=== PATIENT | male | born 1970 | race Caucasian/White ===

== ENCOUNTER 2019-06-05 14:28 | Inpatient (IN) ==
[2019-06-05] MEDS ORDERED: DIAZEPAM 5 MG/ML INJ 10ML VIAL IV STA ×3 (15:16→19:17)
[2019-06-05] MEDS ORDERED: THIAMINE HCL 200 MG in SODIUM CHLORIDE 0.9% 50 ML IV STA (15:16)
[2019-06-05] MEDS ORDERED: SODIUM CHLORIDE 0.9% 1000ML 1,000 ML IV SCH (15:30)
[2019-06-05 15:57] LABS: Basophils # (auto) 0.04 K/uL (0-0.2); Basophils % (auto) 0.6 %; Eosinophils # (auto) 0.03 K/uL (0-0.5); Eosinophils % (auto) 0.4 %; Hematocrit (blood only) 39.6 % (42-52); Hemoglobin 14.6 g/dL (14.0-18.0); Immature Granulocytes # (auto) 0.01 K/uL (0.00-0.02); Immature Granulocytes % (auto) 0.1 %; Lymphocytes # (auto) 1.45 K/uL (1.2-3.4); Lymphocytes % (auto) 20.6 %; Mean Corpuscular Hemoglobin 33.7 pg (25-34); Mean Corpuscular Hgb Conc 36.9 g/dL (32-36); Mean Corpuscular Volume 91.5 fL (80-100); Mean Platelet Volume 10.3 fL (7.4-10.4); Monocytes # (auto) 0.75 K/uL (0.11-0.59); Monocytes % (auto) 10.6 %; Neutrophils # (auto) 4.77 K/uL (1.4-6.5); Neutrophils % (auto) 67.7 %; Platelet Count 176 K/uL (130-400); RDW Coefficient of Variation 11.8 % (11.5-14.5); RDW Standard Deviation 39.9 fL (36.4-46.3); Red Blood Count 4.33 M/uL (4.7-6.1); White Blood Count 7.05 K/uL (4.8-10.8)
[2019-06-05 16:20] LABS: Albumin Globulin Ratio 0.8 (0.9-2); Albumin Level 3.7 gm/dl (3.4-5.0); BUN Creatinine Ratio 6.8 (10-20); Bilirubin,Total 1.6 mg/dl (0.2-1); Calcium 8.3 mg/dl (8.5-10.1); Creatinine Clr Calc Pharmacy 146.4 ml/min; Est GFR (African American) 127.5; Globulin 4.6 gm/dl (2.5-4.0); Magnesium 1.9 mg/dl (1.8-2.4); Potassium 3.7 mmol/L (3.5-5.1); Total Protein 8.3 gm/dl (6.4-8.2)
[2019-06-05] MEDS ORDERED: SODIUM CHLORIDE 0.9% 1000ML 1,000 ML IV ONE (16:36)
[2019-06-05] MEDS ORDERED: D5W AND 1/2NSS + 20MEQ KCL 20 MEQ/1,000 ML BAG IV SCH (19:30)
--- NOTE | 2019-06-05 20:24 | Emergency Department Note ---
Entered by Evelia Martinez acting as a scribe for History of Present Illness General Chief complaint: Detox Request Stated complaint: ALCOHOL DETOX Time Seen by Provider: 06/05/19 15:13 Source: patient History of Present Illness Onset (ago): day(s) (today) Location: head Pain Consistency: + other (episode) Maximum Pain Intensity: 0 Quality: + other (detox) Associated symptoms: + diaphoresis, + nausea/vomiting, + weakness and + other (shaky, brown urine, abdominal pain); no fever/chills The patient is a 48 year old male w/ PMHx acid reflux, anxiety, HLD, HTN, diabetes, and alcoholism who presents to the ED w/ CC of an episode of detox starting today. The patient states that for the past 12 years he has been drinking a bottle of liquor a day. He states that he has intermittently felt that he needed to drink out of necessity, but the past few days has felt it constantly. He states that he had 2 drinks yesterday and only one today, but he feels weak and shaky. He notes that he has also had diaphoresis and brown urine. He notes that he feels like he may just have a heart attack or something with how he feels. The patient complains of nausea, vomiting, and right lower abdominal cramping. The patient denies fever, chills, use of drugs, use of tobacco, and missing any of his medications. Home Medications Home Medications Medication Instructions Recorded Confirmed Type amlodipine 5 mg tablet 5 mg PO DAILY #90 tab 02/27/19 06/05/19 Rx glipizide 5 mg tablet 5 mg PO DAILY #90 tab 02/27/19 06/05/19 Rx lisinopril 40 mg tablet 40 mg PO DAILY #90 tab 02/27/19 06/05/19 Rx omeprazole 20 mg capsule,delayed 20 mg PO DAILY #90 cap 02/27/19 06/05/19 Rx release simvastatin 20 mg tablet 20 mg PO QPM #90 tab 02/27/19 06/05/19 Rx Allergies Allergy/AdvReac Type Severity Reaction Status Date / Time No Known Allergies Allergy Mild Unverified 06/05/19 16:37 Past Med/Surg History Medical History Acid reflux Anxiety Elevated transaminase level Hyperlipidemia Hypertension Regular alcohol consumption Type II diabetes mellitus Family History Other Family history non-contributory Social History 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 and A total of 10 systems reviewed and were otherwise negative Physical Exam Vital Signs Vital Signs - 24 hr 06/05/19 14:31 06/05/19 15:58 06/05/19 15:59 Temperature 36.7 C Temperature Source Oral Pulse Rate 121 H Pulse Rate [Left] 113 H Pulse Rate from SpO2 Sensor Pulse Rhythm Regular Pulse Rhythm [Left] Regular Pulse Strength Normal Pulse Strength [Left] Respiratory Rate 16 23 Respiratory Effort / Characteristics Non-Labored Non-Labored Respiratory Depth Normal Normal Respiratory Pattern Regular Regular Blood Pressure 157/106 H Blood Pressure [Right Arm] 146/93 H Blood Pressure Mean 123 Blood Pressure Mean [Right Arm] 110 Blood Pressure Position Sitting Blood Pressure Position [Right Arm] Pulse Oximetry 97 94 94 Oxygen Delivery Method Room Air Room Air Room Air Sepsis Recent Fever Within 48 Hours No Sepsis Action Taken by Nursing No Action Required 06/05/19 17:29 06/05/19 17:49 06/05/19 20:00 Temperature Temperature Source Pulse Rate 102 H Pulse Rate [Left] 112 H 108 H Pulse Rate from SpO2 Sensor 103 H Pulse Rhythm Pulse Rhythm [Left] Regular Pulse Strength Pulse Strength [Left] Normal Respiratory Rate 20 20 21 Respiratory Effort / Characteristics Non-Labored Spontaneous Non-Labored Respiratory Depth Normal Normal Respiratory Pattern Regular Regular Blood Pressure 133/91 Blood Pressure [Right Arm] 132/88 146/84 H Blood Pressure Mean 113 Blood Pressure Mean [Right Arm] 102 104 Blood Pressure Position Blood Pressure Position [Right Arm] Sitting Pulse Oximetry 93 95 93 Oxygen Delivery Method Room Air Room Air Sepsis Recent Fever Within 48 Hours Sepsis Action Taken by Nursing 06/05/19 20:30 Temperature Temperature Source Pulse Rate 112 H Pulse Rate [Left] Pulse Rate from SpO2 Sensor 111 H Pulse Rhythm Pulse Rhythm [Left] Pulse Strength Pulse Strength [Left] Respiratory Rate 20 Respiratory Effort / Characteristics Respiratory Depth Respiratory Pattern Blood Pressure 160/110 H Blood Pressure [Right Arm] Blood Pressure Mean 122 Blood Pressure Mean [Right Arm] Blood Pressure Position Blood Pressure Position [Right Arm] Pulse Oximetry 94 Oxygen Delivery Method Sepsis Recent Fever Within 48 Hours Sepsis Action Taken by Nursing GENERAL: Well nourished, moderate distress, tremulous, non-toxic. EYE EXAM: Normal conjunctiva. PERRL, no anisocoria and EOM's grossly intact w/o pain. OROPHARYNX: Dry mucous membranes. Grossly normal dentition. Tongue fascic ulations noted. NECK: Supple, no nuchal rigidity, no adenopathy, non-tender. No signs of meningismus. LUNGS: Clear to auscultation. Normal chest wall mechanics. HEART: NSR, no MRG. ABDOMEN: Abdomen soft, non-tender, normo-active bowel sounds, no masses, no rebound or guarding. BACK: No CVA TTP. SKIN: No rashes and no bruising. UPPER EXTREMITIES: Upper extremities are grossly normal. LOWER EXTREMITIES: No pitting edema. No calf pain. NEURO EXAM: A&O x3, cranial nerves II-XII grossly intact, normal speech, moves all 4 extremities on command w/o issue. Course Course 1525: The patient was evaluated in room B9. A complete history and physical exam was performed. 152: Orders were placed and the patient was started on the equipment monitor phototypesetting. 172: I reevaluated the patient and updated him on his test results. I discussed the treatment plan with him. He verbally agrees and understands. The residential case manager is going to come speak with him. 1916: I discussed the patient's case with Dr. Humphrey [facility] Hospitalist. He will evaluate the patient for further management. 1956: [facility] the [facility] He will evaluate the patient for further management. Administered Medications Amlodipine Besylate (Norvasc) 5 mg PO DAILY [facility] Stop: 07/06/19 08:59 Last Admin: 06/06/19 08:23 Dose: 5 mg Documented by: [id number] Folic Acid (Folvite) 1 mg PO QAM [facility] Stop: 07/06/19 08:59 Last Admin: 06/06/19 08:23 Dose: 1 mg Documented by: [id number] Insulin Aspart (Novolog Flexpen) 0 units SC ACHS [facility] Stop: 07/06/19 00:35 Last Admin: 06/06/19 12:06 Dose: 1 units Documented by: [id number] Cosigned by: [id number] Admin: 06/06/19 08:56 Dose: 2 units Documented by: [id number] Cosigned by: [id number] Admin: 06/06/19 01:05 Dose: Not Given Documented by: [id number] Cosigned by: [id number] Lisinopril (Zestril) 40 mg PO DAILY [facility] Stop: 07/06/19 08:59 Last Admin: 06/06/19 08:24 Dose: 40 mg Documented by: [id number] Pantoprazole Sodium (Protonix) 40 mg PO DAILY [facility] Stop: 07/06/19 08:59 Last Admin: 06/06/19 08:23 Dose: 40 mg Documented by: [id number] Simvastatin (Zocor) 20 mg PO QPM MARY Stop: 07/06/19 00:35 Last Admin: 06/06/19 01:29 Dose: 20 mg Documented by: [id number] Thiamine HCl (Vitamin B-1) 100 mg PO QAM MARY Stop: 07/06/19 08:59 Last Admin: 06/06/19 08:24 Dose: 100 mg Documented by: [id number] Discontinued Medications Diazepam (Valium) 10 mg IV NOW STA Stop: 06/05/19 15:17 Last Admin: 06/05/19 15:55 Dose: 10 mg Documented by: [id number] Diazepam (Valium) 10 mg IV NOW STA Stop: 06/05/19 16:37 Last Admin: 06/05/19 17:20 Dose: 10 mg Documented by: [id number] Diazepam (Valium) 10 mg IV NOW STA Stop: 06/05/19 19:18 Last Admin: 06/05/19 19:38 Dose: 10 mg Documented by: [id number] Gabapentin (Neurontin) 1,200 mg PO TODAY@1100 [facility] Stop: 06/06/19 11:01 Last Admin: 06/06/19 11:48 Dose: 1,200 mg Documented by: [id number] Sodium Chloride (Nss 1000ml) 1,000 mls @ 999 mls/hr IV .Q1H1M MARY Stop: 06/05/19 16:30 Last Infusion: 06/05/19 17:27 Dose: 0 mls/hr Documented by: [id number] Admin: 06/05/19 15:50 Dose: 999 mls/hr Documented by: [id number] Thiamine HCl 200 mg/ Sodium (Chloride) 52 mls @ 208 mls/hr IV NOW STA Stop: 06/05/19 15:30 Last Infusion: 06/05/19 17:27 Dose: 0 mls/hr Documented by: [id number] Admin: 06/05/19 15:51 Dose: 208 mls/hr Documented by: [id number] Sodium Chloride (Nss 1000ml) 1,000 mls @ 999 mls/hr IV .Q1H1M ONE Stop: 06/05/19 17:36 Last Infusion: 06/05/19 18:24 Dose: 0 mls/hr Documented by: [id number] Admin: 06/05/19 17:20 Dose: 999 mls/hr Documented by: [id number] Potassium Chloride/Dextrose/Sod Cl (D5w And 1/2nss + 20meq Kcl) 20 meq in 1,000 mls @ 250 mls/hr IV .Q4H [facility] Stop: 07/05/19 19:29 Last Infusion: 06/06/19 00:37 Dose: 0 mls/hr Documented by: [id number] Infusion: 06/05/19 21:30 Dose: 0 mls/hr Documented by: [id number] Admin: 06/05/19 19:46 Dose: 250 mls/hr Documented by: [id number] Potassium Chloride/Sodium Chloride (Normal Saline W/20 Meq Kcl) 20 meq in 1,000 mls @ 150 mls/hr IV .Q6H40M [facility] Stop: 07/06/19 00:59 Last Infusion: 06/06/19 10:54 Dose: 0 mls/hr Documented by: [id number] Admin: 06/06/19 08:11 Dose: 150 mls/hr Documented by: [id number] Infusion: 06/06/19 08:11 Dose: 150 mls/hr Documented by: [id number] Admin: 06/06/19 01:30 Dose: 150 mls/hr Documented by: [id number] Critical Care Time Critical Care Time: Yes Total Critical Care Time: 120 I have personally spent 120 minutes of critical care time in the direct management of this patient. This includes bedside care, interpretation of diagn ostic studies, and testing, discussion with consultants, patient, and family members, and other required patient management activities. This 120 minutes is in excess of all separately billable procedures. Medical Decision Making Differential Diagnosis Etiologies such as toxicological process, infection, hypoglycemia, electrolyte abnormalities, cardiac sources, intracerebral event, neurologic process, as well as others were entertained. Medical Records Attestation: I reviewed the patient's medical records. Home Medications Current Medication List: was personally reviewed by me Laboratory Data Attestation: I reviewed the patient's lab results. Result diagrams: 06/06/19 00:48 06/06/19 00:48 Lab Results 06/05/19 06/05/19 06/05/19 Range/Units 15:35 15:35 15:35 WBC 7.05 (4.8-10.8) K/uL RBC 4.33 L (4.7-6.1) M/uL Hgb 14.6 (14.0-18.0) g/dL Hct 39.6 L (42-52) % MCV 91.5 (80-100) fL MCH 33.7 (25-34) pg MCHC 36.9 H (32-36) g/dL RDW Std Deviation 39.9 (36.4-46.3) fL RDW Coeff of Ashley 11.8 (11.5-14.5) % Plt Count 176 (130-400) K/uL MPV 10.3 (7.4-10.4) fL Immature Gran % (Auto) 0.1 % Neut % (Auto) 67.7 % Lymph % (Auto) 20.6 % Jessamine % (Auto) 10.6 % Eos % (Auto) 0.4 % Baso % (Auto) 0.6 % Immature Gran # (Auto) 0.01 (0.00-0.02) K/uL Neut # (Auto) 4.77 (1.4-6.5) K/uL Lymph # (Auto) 1.45 (1.2-3.4) K/uL Jessamine # (Auto) 0.75 H (0.11-0.59) K/uL Eos # (Auto) 0.03 (0-0.5) K/uL Baso # (Auto) 0.04 (0-0.2) K/uL Sodium 129 L (136-145) mmol/L Potassium 3.7 (3.5-5.1) mmol/L Chloride 95 L (98-107) mmol/L Carbon Dioxide 18 L (21-32) mmol/L Anion Gap 16.0 H (3-11) BUN 5 L (7-18) mg/dl Creatinine 0.75 (0.6-1.4) mg/dl Est Cr Clr Drug Dosing 146.4 ml/min Est GFR ( Amer) 127.5 Est GFR (Non-Af Amer) 110.0 BUN/Creatinine Ratio 6.8 L (10-20) Glucose 90 (70-99) mg/dl Calcium 8.3 L (8.5-10.1) mg/dl Magnesium 1.9 (1.8-2.4) mg/dl Total Bilirubin 1.6 H (0.2-1) mg/dl AST 249 H (15-37) U/L ALT 108 H (12-78) U/L Alkaline Phosphatase 96 (45-117) U/L Total Protein 8.3 H (6.4-8.2) gm/dl Albumin 3.7 (3.4-5.0) gm/dl Globulin 4.6 H (2.5-4.0) gm/dl Albumin/Globulin Ratio 0.8 L (0.9-2) Folate 19.97 (>5.38) ng/ml Specimen Hemolysis Ethyl Alcohol mg/dL (0-3) mg/dl 06/05/19 Range/Units 15:35 WBC (4.8-10.8) K/uL RBC (4.7-6.1) M/uL Hgb (14.0-18.0) g/dL Hct (42-52) % MCV (80-100) fL MCH (25-34) pg MCHC (32-36) g/dL RDW Std Deviation (36.4-46.3) fL RDW Coeff of Ashley (11.5-14.5) % Plt Count (130-400) K/uL MPV (7.4-10.4) fL Immature Gran % (Auto) % Neut % (Auto) % Lymph % (Auto) % Jessamine % (Auto) % Eos % (Auto) % Baso % (Auto) % Immature Gran # (Auto) (0.00-0.02) K/uL Neut # (Auto) (1.4-6.5) K/uL Lymph # (Auto) (1.2-3.4) K/uL Jessamine # (Auto) (0.11-0.59) K/uL Eos # (Auto) (0-0.5) K/uL Baso # (Auto) (0-0.2) K/uL Sodium (136-145) mmol/L Potassium (3.5-5.1) mmol/L Chloride (98-107) mmol/L Carbon Dioxide (21-32) mmol/L Anion Gap (3-11) BUN (7-18) mg/dl Creatinine (0.6-1.4) mg/dl Est Cr Clr Drug Dosing ml/min Est GFR ( Amer) Est GFR (Non-Af Amer) BUN/Creatinine Ratio (10-20) Glucose (70-99) mg/dl Calcium (8.5-10.1) mg/dl Magnesium (1.8-2.4) mg/dl Total Bilirubin (0.2-1) mg/dl AST (15-37) U/L ALT (12-78) U/L Alkaline Phosphatase (45-117) U/L Total Protein (6.4-8.2) gm/dl Albumin (3.4-5.0) gm/dl Globulin (2.5-4.0) gm/dl Albumin/Globulin Ratio (0.9-2) Folate (>5.38) ng/ml Specimen Hemolysis Ethyl Alcohol mg/dL 24.0 H (0-3) mg/dl Blood Pressure Blood Pressure Findings: Elevated blood pressure Blood Pressure Disposition: further management by hospitalist SAUNDRA Narrative The patient is a 48 year old male w/ PMHx acid reflux, anxiety, HLD, HTN, diabetes, and alcoholism who presents to the ED w/ CC of an episode of detox starting today. Patient was seen and eval at the bedside. The patient was presenting with a detox request. The patient is somewhat tremulous and tachycardic. The patient typically drinks 1/5 of alcohol per day and is only drinking 3 drinks in the last 2 days. The patient does have tongue fasciculations and is tremulous. The patient was given medications. Blood work was obtained. The patient does have some associated hyponatremia and is dehydrated. The patient was given some additional vitamin started on D5 half with KCl. The patient did require additional IV Valium in order to ensure the patient did not go into complete DTs as the patient was suffering from symptoms of withdrawal. I did speak the on- call hospitalist agreed to further evaluate treat the patient. Patient subsequently made to the medicine service. Patient's hyponatremia and alcoholic hepatitis are likely sequela from his alcohol abuse. Impression & Plan Alcohol withdrawal, Hyponatremia, Acute alcoholic hepatitis, Acute dehydration Discharge Plan Visit Data *Final* Discharge Date/Time: 06/05/19 21:53 Chief Complaint: Detox Request Stated Complaint: ALCOHOL DETOX ED Provider: Roman Smith Discharge Problem: Alcohol withdrawal, Hyponatremia, Acute alcoholic hepatitis, Acute dehydration Patient Disposition: Admitted As Inpatient Discharge Instructions Interventions: ED Discharge Assessment Last Done: 06/05/19 21:53 Discharge Problem: Alcohol withdrawal Qualifiers: Complication of substance-induced condition: with unspecified complication Qualified Code(s): F10.239 - Alcohol dependence with withdrawal, unspecified The scribe's documentation has been prepared under my direction and personally reviewed by me in its entirety. I confirm that the note above accurately reflects all work, treatment, procedures, and medical decision making performed by me.
--- NOTE | 2019-06-05 22:47 | CT Scan Report ---
CT OF THE ABDOMEN AND PELVIS WITHOUT CONTRAST CLINICAL HISTORY: abnormal LFT's, ETOH abuse COMPARISON STUDY: No previous studies for comparison. TECHNIQUE: Axial images of the abdomen and pelvis were obtained without IV contrast. Images were revi ewed in the axial, sagittal, and coronal planes. Automated exposure control was utilized for the teresita dy. A dose lowering technique was utilized adhering to the principles of ALARA. FINDINGS: Lung bases are unremarkable. There is severe fatty infiltration of the liver. There is mild hepatomegaly. Lateral segment is enlarged. No hepatic lesions are identified although sensitivity is diminished on this unenhanced exam. There is mild gallbladder distention. Unenhanced images of the a drenal glands, kidneys and pancreas are unremarkable. There are calcified cannula was within the sple en. The size of the spleen is normal. No pneumatosis, free air or portal venous gas is present. There is no evidence for a bowel obstruction. The appendix is normal. Colonic diverticulosis is noted with out evidence for acute diverticulitis. There is no lymphadenopathy or ascites. No collaterals are whitney ntified on this noncontrast examination. There is no biliary or pancreatic ductal dilatation. IMPRESSION: 1. Severe fatty infiltration of the liver. Mild hepatomegaly. Mild enlargement of the lateral segment which can be an early finding of cirrhosis. 2. No ascites. Normal size spleen. 3. Mild gallbladder distention. Equivocal pericholecystic infiltration. If right upper quadrant pain, an ultrasound could be obtained. 4. No bowel obstruction. Colonic diverticulosis without evidence for acute diverticulitis. Electronically signed by: Frank Valerio M.D. 06/05/2019 10:45 PM
--- NOTE | 2019-06-05 23:13 | History & Physical Report ---
Date of Service June 05, 2019 Assessment & Plan (1) Alcohol withdrawal: Admit to monitored bed. Place on AWSS withdrawal program. NSS + KCl 20 mEq at 100 mils per hour. Zofran 4 mg IV every 6 hours as needed. Present on Admission?: Yes (2) Acid reflux: Omeprazole 20 mg p.o. daily or pantoprazole substitute. Present on Admission?: Yes (3) Type II diabetes mellitus: Hold glipizide 5 mg daily. Patient Accu-Cheks before meals and at bedtime with NovoLog coverage per scale. Check hemoglobin A1c Present on Admission?: Yes (4) Hypertension: Continue amlodipine 5 mg p.o. daily and lisinopril 40 mg p.o. daily with hold parameters Present on Admission?: Yes (5) Hyperlipidemia: Continue simvastatin 20 mg p.o. every evening. Check a fasting lipid panel. Present on Admission?: Yes (6) Liver cirrhosis: Severe fatty liver/mild hepatomegaly/early cirrhosis- Likely combination of alcohol, diabetes, hyperlipidemia and obesity. Work on treating all contributing factors Present on Admission?: Yes (7) Fatty liver: See above Present on Admission?: Yes History of Present Illness Chief Complaint: The patient presents to the emergency department with complaint of shakes, nausea and vomiting over the past 24 to 48 hours due to alcohol withdrawal. Primary Care Provider: SISSY Painter The patient is a 48-year-old male with a past medical history including alcohol abuse, hypertension, diabetes mellitus, GERD, and hyperlipidemia who presents to the emergency department reporting his last alcohol intake was 3 days ago, and is reporting symptoms as noted above suggestive of alcohol withdrawal. His reports that he has gone through this in the past. He has had no recent travels or sick exposures. Allergies Allergy/AdvReac Type Severity Reaction Status Date / Time No Known Allergies Allergy Mild Unverified 06/05/19 16:37 Home Medications Home Medications Medication Instructions Recorded Confirmed Type amlodipine 5 mg tablet 5 mg PO DAILY #90 tab 02/27/19 06/05/19 Rx glipizide 5 mg tablet 5 mg PO DAILY #90 tab 02/27/19 06/05/19 Rx lisinopril 40 mg tablet 40 mg PO DAILY #90 tab 02/27/19 06/05/19 Rx omeprazole 20 mg capsule,delayed 20 mg PO DAILY #90 cap 02/27/19 06/05/19 Rx release simvastatin 20 mg tablet 20 mg PO QPM #90 tab 02/27/19 06/05/19 Rx Past Med/Surg History Medical History Acid reflux Anxiety Elevated transaminase level Hyperlipidemia Hypertension Regular alcohol consumption Type II diabetes mellitus Family History Other Family history non-contributory Social History Preferred Language: Albanian Mid Level Practitioner Required: No Beliefs That Will Affect Care: None marital status: Current Living Situation: Spouse current occupational status: employed Other Information That Helps Us Care for You: No Feels Safe at Home: Yes Safety Concerns: Feels Safe At This Time Smoking Status: Former smoker Hx Alcohol Use: Yes Alcohol type: beer and hard liquor Hx Substance Use: No Review of Systems Review of Systems: The patient denies chest pain, palpitations, shortness of breath, dyspnea on exertion, cough, lower extremity swelling, sore throat, diarrhea , constipation, abdominal pain, pelvic pain, blood in urine or stool, dysuria, urinary frequency or urgency, loss of consciousness, rash, abnormal bruising or bleeding, imbalance, focal or generalized weakness. The review of systems is otherwise negative other than for that already noted above, and at least 10 systems have been reviewed. Physical Exam Physical Exam: The patient is awake, alert and oriented 3, well developed and well nourished, normocephalic and atraumatic, lying in bed and in no acute distress. HEENT--PERRL, EOMI, mucous membranes and oropharynx dry. Neck--supple. No JVD. No bruits. Thyroid normal, trachea midline, no adenopathy. Heart--normal S1 and S2. No murmurs, rubs or gallops. Lungs--clear bilaterally, no respiratory distress, no accessory muscle use. Abdomen--normal bowel sounds and soft. Nontender. Tympanitic and distended. obese. Extremities--no cyanosis or clubbing. No edema. Dermatologic--normal skin turgor, normal color, no abnormal lymph nodes, no rash. Neurologic--cranial nerves II through XII grossly intact. Rheumatologic--normal range of motion. Psychiatric--normal affect. Results & Data Vital Signs (Past 12 Hours) Vital Signs Temp Pulse Pulse Resp BP BP Pulse Ox 06/05/19 22:00 98 H 10 L 141/99 H 96 06/05/19 21:50 102 H 22 136/97 95 06/05/19 21:00 109 H 20 159/131 H 95 06/05/19 20:52 100 H 17 146/107 H 95 06/05/19 20:30 112 H 20 160/110 H 94 06/05/19 20:00 102 H 21 133/91 93 06/05/19 17:49 108 H 20 146/84 H 95 06/05/19 17:29 112 H 20 132/88 93 06/05/19 15:59 113 H 23 146/93 H 94 06/05/19 15:58 94 06/05/19 14:31 98.1 F 121 H 16 157/106 H 97 Laboratory Results Laboratory Results WBC 4.68 K/uL (4.8-10.8) L 06/06/19 00:48 RBC 3.96 M/uL (4.7-6.1) L 06/06/19 00:48 Hgb 13.1 g/dL (14.0-18.0) L 06/06/19 00:48 Hct 36.5 % (42-52) L 06/06/19 00:48 MCV 92.2 fL (80-100) 06/06/19 00:48 MCH 33.1 pg (25-34) 06/06/19 00:48 MCHC 35.9 g/dL (32-36) 06/06/19 00:48 RDW Std Deviation 40.7 fL (36.4-46.3) 06/06/19 00:48 RDW Coeff of Ashley 11.9 % (11.5-14.5) 06/06/19 00:48 Plt Count 117 K/uL (130-400) L 06/06/19 00:48 MPV 10.1 fL (7.4-10.4) 06/06/19 00:48 Immature Gran % (Auto) 0.2 % 06/06/19 00:48 Neut % (Auto) 56.8 % 06/06/19 00:48 Lymph % (Auto) 28.8 % 06/06/19 00:48 [place] % (Auto) 11.5 % 06/06/19 00:48 Eos % (Auto) 2.1 % 06/06/19 00:48 Baso % (Auto) 0.6 % 06/06/19 00:48 Immature Gran # (Auto) 0.01 K/uL (0.00-0.02) 06/06/19 00:48 Neut # (Auto) 2.65 K/uL (1.4-6.5) 06/06/19 00:48 Lymph # (Auto) 1.35 K/uL (1.2-3.4) 06/06/19 00:48 [place] # (Auto) 0.54 K/uL (0.11-0.59) 06/06/19 00:48 Eos # (Auto) 0.10 K/uL (0-0.5) 06/06/19 00:48 Baso # (Auto) 0.03 K/uL (0-0.2) 06/06/19 00:48 PT 11.5 Seconds (9.0-12.0) 06/06/19 00:48 INR 1.1 (0.9-1.1) 06/06/19 00:48 APTT 25.9 Seconds (21.0-31.0) 06/06/19 00:48 PTT Ratio 1.0 06/06/19 00:48 Sodium 132 mmol/L (136-145) L 06/06/19 00:48 Potassium 3.5 mmol/L (3.5-5.1) 06/06/19 00:48 Chloride 100 mmol/L (98-107) 06/06/19 00:48 Carbon Dioxide 21 mmol/L (21-32) 06/06/19 00:48 Anion Gap 11.0 (3-11) 06/06/19 00:48 BUN 6 mg/dl (7-18) L 06/06/19 00:48 Creatinine 0.78 mg/dl (0.6-1.4) 06/06/19 00:48 Est Cr Clr Drug Dosing 141.4 ml/min 06/06/19 00:48 Est GFR ( Amer) 125.5 06/06/19 00:48 Est GFR (Non-Af Amer) 108.3 06/06/19 00:48 BUN/Creatinine Ratio 7.6 (10-20) L 06/06/19 00:48 Glucose 105 mg/dl (70-99) H 06/06/19 00:48 POC Glucose 113 (70-99) H 06/06/19 01:01 Calcium 7.6 mg/dl (8.5-10.1) L 06/06/19 00:48 Magnesium 1.9 mg/dl (1.8-2.4) 06/05/19 15:35 Total Bilirubin 1.6 mg/dl (0.2-1) H 06/06/19 00:48 AST 179 U/L (15-37) H 06/06/19 00:48 ALT 87 U/L (12-78) H 06/06/19 00:48 Alkaline Phosphatase 81 U/L (45-117) 06/06/19 00:48 Total Protein 7.4 gm/dl (6.4-8.2) 06/06/19 00:48 Albumin 3.2 gm/dl (3.4-5.0) L 06/06/19 00:48 Globulin 4.2 gm/dl (2.5-4.0) H 06/06/19 00:48 Albumin/Globulin Ratio 0.8 (0.9-2) L 06/06/19 00:48 Folate 16.95 ng/ml (>5.38) 06/06/19 00:48 Specimen Hemolysis 06/05/19 15:35 Ethyl Alcohol mg/dL 24.0 mg/dl (0-3) H 06/05/19 15:35 Diagnostic Findings [facility], [place] [phone] CT Scan Report [facility]: [facility] MR#: [id number]: [address] Acct ID:[id number]: Date: 1970[facility] Zip: [place] [address] Age: 48Location: 2S Sex: M Room/Bed: [facility] Att Phy: Ruslan Bautista M.D.Diagnosis: ALCOHOL WITHDRAWAL Jacquelyn Phy: Tatum Mcdermott CRNPService Date: 06/05/19 Fam Phy:Interpreting Phy: Frank Valerio MD Admit Phy: Ruslan Bautista M.D. Ordering Phy: Ruslan Bautista M.D. cc: ~ CT OF THE ABDOMEN AND PELVIS WITHOUT CONTRAST CLINICAL HISTORY: abnormal LFT's, ETOH abuse COMPARISON STUDY: No previous studies for comparison. TECHNIQUE: Axial images of the abdomen and pelvis were obtained without IV contrast. Images were reviewed in the axial, sagittal, and coronal planes. Automated exposure control was utilized for the study. A dose lowering technique was utilized adhering to the principles of ALARA. FINDINGS: Lung bases are unremarkable. There is severe fatty infiltration of the liver. There is mild hepatomegaly. Lateral segment is enlarged. No hepatic lesions are identified although sensitivity is diminished on this unenhanced exam. There is mild gallbladder distention. Unenhanced images of the adrenal glands, kidneys and pancreas are unremarkable. There are calcified cannula was within the spleen. The size of the spleen is normal. No pneumatosis, free air or portal venous gas is present. There is no evidence for a bowel obstruction. The appendix is normal. Colonic diverticulosis is noted without evidence for acute diverticulitis. There is no lymphadenopathy or ascites. No collaterals are identified on this noncontrast examination. There is no biliary or pancreatic ductal dilatation. IMPRESSION: 1. Severe fatty infiltration of the liver. Mild hepatomegaly. Mild enlargement of the lateral segment which can be an early finding of cirrhosis. 2. No ascites. Normal size spleen. 3. Mild gallbladder distention. Equivocal pericholecystic infiltration. If right upper quadrant pain, an ultrasound could be obtained. 4. No bowel obstruction. Colonic diverticulosis without evidence for acute diverticulitis. Electronically signed by: Frank Valerio M.D. 06/05/2019 10:45 PM Dictated: 06/05/192238 Transcribed: 06/05/192238 Code Status & VTE Plan Code Status Full code VTE Prophylaxis Plan VTE Prophylaxis will be ordered: Yes PG Care Time/CCT Total # of Minutes Spent Total Time Spent with Patient: Total time spent is greater than 50% in coordination of care (as documented) at patient's floor/unit and/or counseling patient: (1) Alcohol withdrawal Complication of substance-induced condition: with unspecified complication Qualified Code(s): F10.239 - Alcohol dependence with withdrawal, unspecified
[2019-06-06] MEDS ORDERED: GLUCOSE 40% GEL 15 GM TUBE PO PRN (00:36)
[2019-06-06] MEDS ORDERED: GLUCAGON FOR INJ 1 MG VIAL SQ PRN (00:36)
[2019-06-06] MEDS ORDERED: CARBOHYDRATES FOR HYPOGLYCEMIA PO PRN (00:36)
[2019-06-06] MEDS ORDERED: GLUCOSE 10 TABS/TUBE PO PRN (00:36)
[2019-06-06] MEDS ORDERED: ONDANSETRON INJ 2 MG/ML 2 ML VIAL IV PRN (00:36)
[2019-06-06] MEDS ORDERED: LORazepam 1 MG TAB PO PRN (00:36)
[2019-06-06] MEDS ORDERED: MAGNESIUM HYDROXIDE SUSP 30 ML UDC PO PRN (00:36)
[2019-06-06] MEDS ORDERED: ALUMINUM/MAGNESIUM SUSP 30 ML UDC PO PRN (00:36)
[2019-06-06] MEDS ORDERED: DEXTROSE 50% 50 ML SYRINGE IV PRN (00:36)
[2019-06-06 01:00] LABS: Basophils # (auto) 0.03 K/uL (0-0.2); Basophils % (auto) 0.6 %; Eosinophils % (auto) 2.1 %; Hematocrit (blood only) 36.5 % (42-52); Hemoglobin 13.1 g/dL (14.0-18.0); Immature Granulocytes # (auto) 0.01 K/uL (0.00-0.02); Immature Granulocytes % (auto) 0.2 %; Lymphocytes # (auto) 1.35 K/uL (1.2-3.4); Lymphocytes % (auto) 28.8 %; Mean Corpuscular Hemoglobin 33.1 pg (25-34); Mean Corpuscular Hgb Conc 35.9 g/dL (32-36); Mean Corpuscular Volume 92.2 fL (80-100); Mean Platelet Volume 10.1 fL (7.4-10.4); Monocytes # (auto) 0.54 K/uL (0.11-0.59); Monocytes % (auto) 11.5 %; Neutrophils # (auto) 2.65 K/uL (1.4-6.5); Neutrophils % (auto) 56.8 %; Platelet Count 117 K/uL (130-400); RDW Coefficient of Variation 11.9 % (11.5-14.5); RDW Standard Deviation 40.7 fL (36.4-46.3); Red Blood Count 3.96 M/uL (4.7-6.1); White Blood Count 4.68 K/uL (4.8-10.8)
[2019-06-06] MEDS: INSULIN ASPART 100 UNITS/ML 3 ML PEN SC SCH ×5 (01:05→20:31)
[2019-06-06 01:15] LABS: Albumin Level 3.2 gm/dl (3.4-5.0); BUN Creatinine Ratio 7.6 (10-20); Calcium 7.6 mg/dl (8.5-10.1); Creatinine Clr Calc Pharmacy 141.4 ml/min; Est GFR (African American) 125.5; Est GFR (Non-African American) 108.3; Potassium 3.5 mmol/L (3.5-5.1)
[2019-06-06 01:18] LABS: Albumin Globulin Ratio 0.8 (0.9-2); Bilirubin,Total 1.6 mg/dl (0.2-1); Globulin 4.2 gm/dl (2.5-4.0); Total Protein 7.4 gm/dl (6.4-8.2)
[2019-06-06 01:19] LABS: INR 1.1 (0.9-1.1); Partial Thromboplastin Time 25.9 Seconds (21.0-31.0); Prothrombin Time 11.5 Seconds (9.0-12.0)
[2019-06-06] MEDS: SIMVASTATIN 20 MG TAB PO SCH ×2 (01:29→20:31)
[2019-06-06] MEDS: NSS + 20MEQ KCL 20 MEQ/1,000 ML BAG IV SCH ×2 (01:30→08:11)
[2019-06-06 06:18] LABS: Estimated Average Glucose 177 mg/dl; Hemoglobin A1C 7.8 % (4.5-5.6)
[2019-06-06] MEDS: AMLODIPINE BESYLATE 5 MG TAB PO SCH (08:23)
[2019-06-06] MEDS: FOLIC ACID 1 MG TAB PO SCH (08:23)
[2019-06-06] MEDS: PANTOprazole 40 MG TAB PO SCH (08:23)
[2019-06-06] MEDS: THIAMINE HCL 100 MG TAB PO SCH (08:24)
[2019-06-06] MEDS: lisinopriL 40 MG TAB PO SCH (08:24)
[2019-06-06] MEDS ORDERED: GABAPENTIN 1200MG ALCOHOL WITHDRAWAL LOAD PO STA (10:15)
[2019-06-06] MEDS ORDERED: GABAPENTIN 600 MG TAB PO SCH (11:00)
--- NOTE | 2019-06-06 14:41 | Hospitalist Progress Note ---
Date of Service June 06, 2019 Assessment & Plan (1) Alcohol withdrawal: Gabapentin loading dose of 1200mg will follow taper per AWSS protocol Ativan PRN but currently not requiring plan to stay in hospital over the weekend CM will help with d/c planning, inpatient vs outpatient alcohol rehab (2) Liver cirrhosis: Severe fatty liver/mild hepatomegaly/early cirrhosis- Likely combination of alcohol, diabetes, hyperlipidemia and obesity. long discussion with patient that if he stops drinking now he can prevent further liver damage any further drinking will lead to scarring and early cirrhosis patient understands gravity of the situation (3) Fatty liver: due to obesity, DM (4) Acid reflux: Omeprazole 20 mg p.o. daily or pantoprazole substitute. no symptoms today (5) Type II diabetes mellitus: Hold glipizide 5 mg daily. Patient Accu-Cheks before meals and at bedtime with NovoLog coverage per scale. Check hemoglobin A1c = 7.8% patient should probably not be on Glipizide due to hepatic impairment could consider once a day Lantus if willing to take (6) Hypertension: Continue amlodipine 5 mg p.o. daily and lisinopril 40 mg p.o. daily with hold parameters (7) Hyperlipidemia: Continue simvastatin 20 mg p.o. every evening. Check a fasting lipid panel. 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, self employed so he has been able to drink every day for a long time has been drinking daily for 20 years typically drinks vodka but also beer reports that he frequently needs to drink in the morning, gets agitated if he does not have a drink, family has expressed concerns decided to stop drinking about 4 days ago after family urged him to stop needed to have a small drink last night to help with withdrawal symptoms reviewed labs, Bili, AST, ALT all minimally elevated CT with evidence of fatty infiltration and early cirrhosis discussed these findings with the patient, warned him about developing cirrhosis discussed that we can help him with the withdrawal, recommend Gabapentin load and taper he had not required any Ativan as of this morning he does not have a definitive goal for outpatient rehab yet, CM will help with this Review of Systems Review of Systems: All systems reviewed & are unremarkable except as noted in HPI & below Constitutional: no fever, no chills, no sweats, no fatigue and no weakness Respiratory: no cough and no dyspnea Cardiovascular: no chest pain, no syncope and no edema Neurologic: + tremor(s) (mild in hands, from withdrawal) Psychiatric: + substance abuse (daily drinking, 3-10 drinks a day for 20 years) Physical Exam Constitutional: WD/WN, vitals as above + overweight Eyes: PERRL, conjunctivae normal, anicteric sclerae ENMT: external ear and nose normal, oropharynx normal Neck: trachea midline, no thyromegaly Respiratory: normal respiratory effort, lungs clear to auscultation Cardiovascular: RRR, no murmur, no edema Gastrointestinal (Abdomen): normal bowel sounds, soft, nontender, no hepatosplenomegaly Musculoskeletal: no cyanosis or clubbing, extremities motor strength 5/5 Skin: no rashes, warm and dry Neurologic: patellar DTR's 2+ bilat, sensation intact and PERRL, EOMI, accommodation nl, no face palsy, no dysarthria Psychiatric: A+Ox3, euthymic affect Lymphatic: no cervical or axillary lymphadenopathy Results & Data Vital Signs (Past 12 Hours) Vital Signs Temp Pulse Resp BP Pulse Ox 06/06/19 12:47 36.7 C 96 H 16 146/83 H 97 06/06/19 08:01 36.4 C L 88 18 151/97 H 97 06/06/19 04:12 36.5 C 85 17 131/83 97 Laboratory Results Laboratory Results - last 24 hr 06/05/19 06/05/19 06/05/19 15:35 15:35 15:35 WBC 7.05 RBC 4.33 L Hgb 14.6 Hct 39.6 L MCV 91.5 MCH 33.7 MCHC 36.9 H RDW Std Deviation 39.9 RDW Coeff of Ashley 11.8 Plt Count 176 MPV 10.3 Immature Gran % (Auto) 0.1 Neut % (Auto) 67.7 Lymph % (Auto) 20.6 [place] % (Auto) 10.6 Eos % (Auto) 0.4 Baso % (Auto) 0.6 Immature Gran # (Auto) 0.01 Neut # (Auto) 4.77 Lymph # (Auto) 1.45 [place] # (Auto) 0.75 H Eos # (Auto) 0.03 Baso # (Auto) 0.04 PT INR APTT PTT Ratio Sodium 129 L Potassium 3.7 Chloride 95 L Carbon Dioxide 18 L Anion Gap 16.0 H BUN 5 L Creatinine 0.75 Est Cr Clr Drug Dosing 146.4 Est GFR ( Amer) 127.5 Est GFR (Non-Af Amer) 110.0 BUN/Creatinine Ratio 6.8 L Glucose 90 POC Glucose Estimat Average Glucose Hemoglobin A1c Calcium 8.3 L Magnesium 1.9 Total Bilirubin 1.6 H AST 249 H ALT 108 H Alkaline Phosphatase 96 Total Protein 8.3 H Albumin 3.7 Globulin 4.6 H Albumin/Globulin Ratio 0.8 L Folate 19.97 Specimen Hemolysis Ethyl Alcohol mg/dL 06/05/19 06/05/19 06/06/19 15:35 20:53 00:48 WBC RBC Hgb Hct MCV MCH MCHC RDW Std Deviation RDW Coeff of Ashley Plt Count MPV Immature Gran % (Auto) Neut % (Auto) Lymph % (Auto) [place] % (Auto) Eos % (Auto) Baso % (Auto) Immature Gran # (Auto) Neut # (Auto) Lymph # (Auto) [place] # (Auto) Eos # (Auto) Baso # (Auto) PT INR APTT PTT Ratio Sodium Potassium Chloride Carbon Dioxide Anion Gap BUN Creatinine Est Cr Clr Drug Dosing Est GFR ( Amer) Est GFR (Non-Af Amer) BUN/Creatinine Ratio Glucose POC Glucose 106 H Estimat Average Glucose Hemoglobin A1c Calcium Magnesium Total Bilirubin AST ALT Alkaline Phosphatase Total Protein Albumin Globulin Albumin/Globulin Ratio Folate 16.95 Specimen Hemolysis Ethyl Alcohol mg/dL 24.0 H 06/06/19 06/06/19 06/06/19 00:48 00:48 00:48 WBC 4.68 L RBC 3.96 L Hgb 13.1 L Hct 36.5 L MCV 92.2 MCH 33.1 MCHC 35.9 RDW Std Deviation 40.7 RDW Coeff of Ashley 11.9 Plt Count 117 L MPV 10.1 Immature Gran % (Auto) 0.2 Neut % (Auto) 56.8 Lymph % (Auto) 28.8 [place] % (Auto) 11.5 Eos % (Auto) 2.1 Baso % (Auto) 0.6 Immature Gran # (Auto) 0.01 Neut # (Auto) 2.65 Lymph # (Auto) 1.35 [place] # (Auto) 0.54 Eos # (Auto) 0.10 Baso # (Auto) 0.03 PT INR APTT PTT Ratio Sodium 132 L Potassium 3.5 Chloride 100 Carbon Dioxide 21 Anion Gap 11.0 BUN 6 L Creatinine 0.78 Est Cr Clr Drug Dosing 141.4 Est GFR ( Amer) 125.5 Est GFR (Non-Af Amer) 108.3 BUN/Creatinine Ratio 7.6 L Glucose 105 H POC Glucose Estimat Average Glucose 177 Hemoglobin A1c 7.8 H Calcium 7.6 L Magnesium Total Bilirubin 1.6 H AST 179 H ALT 87 H Alkaline Phosphatase 81 Total Protein 7.4 Albumin 3.2 L Globulin 4.2 H Albumin/Globulin Ratio 0.8 L Folate Specimen Hemolysis Ethyl Alcohol mg/dL 06/06/19 06/06/19 06/06/19 00:48 01:01 08:03 WBC RBC Hgb Hct MCV MCH MCHC RDW Std Deviation RDW Coeff of Ashley Plt Count MPV Immature Gran % (Auto) Neut % (Auto) Lymph % (Auto) [place] % (Auto) Eos % (Auto) Baso % (Auto) Immature Gran # (Auto) Neut # (Auto) Lymph # (Auto) [place] # (Auto) Eos # (Auto) Baso # (Auto) PT 11.5 INR 1.1 APTT 25.9 PTT Ratio 1.0 Sodium Potassium Chloride Carbon Dioxide Anion Gap BUN Creatinine Est Cr Clr Drug Dosing Est GFR ( Amer) Est GFR (Non-Af Amer) BUN/Creatinine Ratio Glucose POC Glucose 113 H 100 H Estimat Average Glucose Hemoglobin A1c Calcium Magnesium Total Bilirubin AST ALT Alkaline Phosphatase Total Protein Albumin Globulin Albumin/Globulin Ratio Folate Specimen Hemolysis Ethyl Alcohol mg/dL 06/06/19 11:15 WBC RBC Hgb Hct MCV MCH MCHC RDW Std Deviation RDW Coeff of Ashley Plt Count MPV Immature Gran % (Auto) Neut % (Auto) Lymph % (Auto) [place] % (Auto) Eos % (Auto) Baso % (Auto) Immature Gran # (Auto) Neut # (Auto) Lymph # (Auto) [place] # (Auto) Eos # (Auto) Baso # (Auto) PT INR APTT PTT Ratio Sodium Potassium Chloride Carbon Dioxide Anion Gap BUN Creatinine Est Cr Clr Drug Dosing Est GFR ( Amer) Est GFR (Non-Af Amer) BUN/Creatinine Ratio Glucose POC Glucose 140 H Estimat Average Glucose Hemoglobin A1c Calcium Magnesium Total Bilirubin AST ALT Alkaline Phosphatase Total Protein Albumin Globulin Albumin/Globulin Ratio Folate Specimen Hemolysis Ethyl Alcohol mg/dL Medications Administered Current Inpatient Medications Al Hydrox/Mg Hydrox/Simethicone (Maalox) 15 ml PO Q4H PRN PRN Reason: Dyspepsia Stop: 07/06/19 00:35 Amlodipine Besylate (Norvasc) 5 mg PO DAILY [facility] Stop: 07/06/19 08:59 Last Admin: 06/06/19 08:23 Dose: 5 mg Documented by: Dextrose (Dextrose 50%) 25 - 50 ml IV UD PRN; Protocol PRN Reason: Hypoglycemia Protocol Stop: 07/06/19 00:35 Folic Acid (Folvite) 1 mg PO QAM [facility] Stop: 07/06/19 08:59 Last Admin: 06/06/19 08:23 Dose: 1 mg Documented by: Gabapentin (Neurontin) 600 mg PO Q6H MARY Stop: 06/06/19 22:01 Gabapentin (Neurontin) 600 mg PO Q8H MARY Stop: 06/07/19 22:01 Gabapentin (Neurontin) 600 mg PO Q12H MARY Stop: 06/08/19 22:01 Gabapentin (Neurontin) 600 mg PO Q24H MARY Stop: 06/09/19 22:01 Glucagon (Glucagen) 1 mg SQ UD PRN; Protocol PRN Reason: Hypoglycemia Protocol Stop: 07/06/19 00:35 Glucose (Dex4 Glucose) 4 - 8 tabs PO UD PRN; Protocol PRN Reason: Hypoglycemia Protocol Stop: 07/06/19 00:35 Glucose (Glucose 40%) 15 - 30 gm PO UD PRN; Protocol PRN Reason: Hypoglycemia Protocol Stop: 07/06/19 00:35 Insulin Aspart (Novolog Flexpen) 0 units SC ACHS [facility] Stop: 07/06/19 00:35 Last Admin: 06/06/19 12:06 Dose: 1 units Documented by: Lisinopril (Zestril) 40 mg PO DAILY [facility] Stop: 07/06/19 08:59 Last Admin: 06/06/19 08:24 Dose: 40 mg Documented by: Lorazepam (Ativan) 1 - 3 mg PO UD PRN; Protocol PRN Reason: EtoH Withdrawal AWSS 6-10+ Stop: 07/06/19 00:35 Magnesium Hydroxide (Milk Of Magnesia) 30 ml PO Q12H PRN PRN Reason: Constipation Stop: 07/06/19 00:35 Miscellaneous (Carbohydrates For Hypoglycemia) 15 - 30 gm PO UD PRN PRN Reason: Hypoglycemia Protocol Stop: 07/06/19 00:35 Ondansetron HCl (Zofran) 4 mg IV Q6H PRN PRN Reason: Nausea Stop: 07/06/19 00:35 Pantoprazole Sodium (Protonix) 40 mg PO DAILY MARY Stop: 07/06/19 08:59 Last Admin: 06/06/19 08:23 Dose: 40 mg Documented by: Simvastatin (Zocor) 20 mg PO QPM MARY Stop: 07/06/19 00:35 Last Admin: 06/06/19 01:29 Dose: 20 mg Documented by: Thiamine HCl (Vitamin B-1) 100 mg PO QAM [facility] Stop: 07/06/19 08:59 Last Admin: 06/06/19 08:24 Dose: 100 mg Documented by: PG Care Time/CCT Total # of Minutes Spent Total Time Spent: 45 Total Time Spent with Patient: Total time spent is greater than 50% in coordination of care (as documented) at patient's floor/unit and/or counseling patient: (1) Alcohol withdrawal Complication of substance-induced condition: with unspecified complication Qualified Code(s): F10.239 - Alcohol dependence with withdrawal, unspecified
[2019-06-06] MEDS: GABAPENTIN 600 MG TAB PO SCH ×2 (15:29→21:50)
[2019-06-07] MEDS: GABAPENTIN 600 MG TAB PO SCH ×2 (06:02→13:00)
[2019-06-07 06:47] LABS: Basophils # (auto) 0.03 K/uL (0-0.2); Basophils % (auto) 0.7 %; Eosinophils # (auto) 0.15 K/uL (0-0.5); Eosinophils % (auto) 3.4 %; Hematocrit (blood only) 37.6 % (42-52); Hemoglobin 12.7 g/dL (14.0-18.0); Immature Granulocytes # (auto) 0.01 K/uL (0.00-0.02); Immature Granulocytes % (auto) 0.2 %; Lymphocytes # (auto) 1.46 K/uL (1.2-3.4); Lymphocytes % (auto) 32.7 %; Mean Corpuscular Hemoglobin 32.3 pg (25-34); Mean Corpuscular Hgb Conc 33.8 g/dL (32-36); Mean Corpuscular Volume 95.7 fL (80-100); Mean Platelet Volume 11.8 fL (7.4-10.4); Monocytes # (auto) 0.61 K/uL (0.11-0.59); Monocytes % (auto) 13.6 %; Neutrophils # (auto) 2.21 K/uL (1.4-6.5); Neutrophils % (auto) 49.4 %; Platelet Count 105 K/uL (130-400); RDW Coefficient of Variation 11.9 % (11.5-14.5); RDW Standard Deviation 41.8 fL (36.4-46.3); Red Blood Count 3.93 M/uL (4.7-6.1); White Blood Count 4.47 K/uL (4.8-10.8)
[2019-06-07 07:01] LABS: INR 1.1 (0.9-1.1); Prothrombin Time 11.1 Seconds (9.0-12.0)
[2019-06-07 07:21] LABS: Albumin Level 2.9 gm/dl (3.4-5.0); BUN Creatinine Ratio 8.2 (10-20); Calcium 8.5 mg/dl (8.5-10.1); Creatinine Clr Calc Pharmacy 125.2 ml/min; Est GFR (African American) 119.4; Potassium 3.6 mmol/L (3.5-5.1)
[2019-06-07 07:26] LABS: Albumin Globulin Ratio 0.7 (0.9-2); Globulin 3.9 gm/dl (2.5-4.0); Total Protein 6.8 gm/dl (6.4-8.2)
[2019-06-07] MEDS: PANTOprazole 40 MG TAB PO SCH (08:47)
[2019-06-07] MEDS: AMLODIPINE BESYLATE 5 MG TAB PO SCH (08:47)
[2019-06-07] MEDS: THIAMINE HCL 100 MG TAB PO SCH (08:48)
[2019-06-07] MEDS: FOLIC ACID 1 MG TAB PO SCH (08:48)
[2019-06-07] MEDS: lisinopriL 40 MG TAB PO SCH (08:48)
[2019-06-07] MEDS: INSULIN ASPART 100 UNITS/ML 3 ML PEN SC SCH ×2 (08:52→13:01)
--- NOTE | 2019-06-07 10:22 | Hospitalist Progress Note ---
Date of Service June 07, 2019 Assessment & Plan (1) Alcohol withdrawal: Pt is eager to go home.Pt stated that he will not need inpatient v.outpatient alcohol rehab and he will abstain from drinking on his own. Pt is alert and oriented and his is sitting next to him and confirmed that he will do well at home. Pt is warned that he has multiple comorbidities and if he continues drinking , he will end up with liver cirrhosis. Plan to discontinue glipizide due to liver damage and instead start the Januvia 50 mg p.o. daily. Patient stated that he has $466 to pay for Januvia since he does not have insurance, until he obtains one. He needs to lose at least 10 -15lbs ,manage his diabetes better in order to heal fatty liver and abstain from alcohol.Pt and his are aware of it. Will continue Gabapentin.Tremors improved and resolved. Ativan PRN but currently not requiring.Pt stated that pt has good supportive system at home . Pt declares that he will stay away from alcohol and join [facility]. (2) Liver cirrhosis: Severe fatty liver/mild hepatomegaly/early cirrhosis- Likely combination of alcohol, diabetes, hyperlipidemia and obesity. Pt will join AA, abstain from alcohol , try to lose 10 lbs and control diabetes better in order to heal fatty liver and early cirrhosis. (3) Fatty liver: due to obesity, DM (4) Acid reflux: Omeprazole 20 mg p.o. daily or pantoprazole substitute. no symptoms today (5) Type II diabetes mellitus: Will switch from glipizide 5 mg daily to Januvia 50 mg p.o. daily, due to hepatic impairment. Patient is recommended to continue Accu-Cheks 3 times a day. Patient should follow-up with primary care physician within 7 days and have checked fasting lipid panel at that time. Check hemoglobin A1c = 7.8% (6) Hypertension: Continue amlodipine 5 mg p.o. daily and lisinopril 40 mg p.o. daily with hold parameters (7) Hyperlipidemia: Continue simvastatin 20 mg p.o. every evening. Follow-up with primary care physician in 7 days and do fasting lipid panel at that time. Subjective Patient seen and examined at the bedside. No acute event overnight, hemodynamically stable, afebrile. Patient is adamant to be discharged home. His is next to his bedside and she stated that patient has good support at home and he will stop drinking. Patient voiced himself that he is going to abstain from drinking. He understand that glipizide is not recommended for his diabetes type 2 because of hepatic damage and he stated that he will pay for Januvia and take that instead. Patient will follow-up with primary care physician within a 7 days. At that time is recommended to check his fasting lipid panel.patient was also recommended to join alcoholic Anonymous as soon as possible. Patient agreed with the plan. Patient stated that discharging him to inpatient or outpatient rehab for alcoholism would not help him because he has work to do but he is definitely willing to abstain from alcohol in the future. Review of Systems Review of Systems: All systems reviewed & are unremarkable except as noted in HPI & below Neurologic: + tremor(s) (mild in hands, from withdrawal) Psychiatric: + substance abuse (daily drinking, 3-10 drinks a day for 20 years) Physical Exam Constitutional: WD/WN, vitals as above well developed and + obese Eyes: PERRL, conjunctivae normal, anicteric sclerae ENMT: external ear and nose normal, oropharynx normal Neck: trachea midline, no thyromegaly Respiratory: normal respiratory effort, lungs clear to auscultation Cardiovascular: RRR, no murmur, no edema Gastrointestinal (Abdomen): normal bowel sounds, soft, nontender, no hepatosplenomegaly Musculoskeletal: no cyanosis or clubbing, extremities motor strength 5/5 Skin: no rashes, warm and dry Neurologic: patellar DTR's 2+ bilat, sensation intact Psychiatric: A+Ox3, euthymic affect Genitourinary: no testicular masses, no penis abnormality Lymphatic: no cervical or axillary lymphadenopathy Results & Data Vital Signs (Past 12 Hours) Vital Signs Temp Pulse Resp BP Pulse Ox 06/07/19 07:25 37.0 C 81 20 126/82 97 06/07/19 00:15 36.7 C 108 H 17 124/80 96 PG Care Time/CCT Total # of Minutes Spent Total Time Spent with Patient: Total time spent is greater than 50% in coordination of care (as documented) at patient's floor/unit and/or counseling patient: (1) Alcohol withdrawal Complication of substance-induced condition: with unspecified complication Qualified Code(s): F10.239 - Alcohol dependence with withdrawal, unspecified
--- NOTE | 2019-06-07 13:57 | Discharge Summary ---
Date of Service June 07, 2019 Admission HPI Per Admitting Provider The patient is a 48-year-old male with a past medical history including alcohol abuse, hypertension, diabetes mellitus, GERD, and hyperlipidemia who presents to the emergency department reporting his last alcohol intake was 3 days ago, and is reporting symptoms as noted above suggestive of alcohol withdrawal. His reports that he has gone through this in the past. He has had no recent travels or sick exposures. Principal Diagnosis none Discharge Exam Constitutional WD/WN, vitals as above well developed and + obese Eyes PERRL, conjunctivae normal, anicteric sclerae ENMT external ear and nose normal, oropharynx normal Neck trachea midline, no thyromegaly Respiratory normal respiratory effort, lungs clear to auscultation Cardiovascular RRR, no murmur, no edema Gastrointestinal (Abdomen) normal bowel sounds, soft, nontender, no hepatosplenomegaly Musculoskeletal no cyanosis or clubbing, extremities motor strength 5/5 Skin no rashes, warm and dry Neurologic patellar DTR's 2+ bilat, sensation intact Psychiatric A+Ox3, euthymic affect Genitourinary no testicular masses, no penis abnormality Lymphatic no cervical or axillary lymphadenopathy Discharge Data Allergies Allergy/AdvReac Type Severity Reaction Status Date / Time No Known Allergies Allergy Mild Unverified 06/05/19 16:37 Consultations 06/05/19 19:59 ED Decision to Admit Stat 06/06/19 00:36 Consult Case Management - Discharge Planning Routine Ordered Studies 06/05/19 20:44 CT abd pelvis wo con Stat Hospital Course (1) Alcohol withdrawal: Pt is eager to go home.Pt stated that he will not need inpatient v.outpatient alcohol rehab and he will abstain from drinking on his own. Pt is alert and oriented and his is sitting next to him and confirmed that he will do well at home. Pt is warned that he has multiple comorbidities and if he continues drinking , he will end up with liver cirrhosis. Plan to discontinue glipizide due to liver damage and instead start the Januvia 50 mg p.o. daily. Patient stated that he has $466 to pay for Januvia since he does not have insurance, until he obtains one. He needs to lose at least 10 -15lbs ,manage his diabetes better in order to heal fatty liver and abstain from alcohol.Pt and his are aware of it. Will continue Gabapentin.Tremors improved and resolved. Ativan PRN but currently not requiring.Pt stated that pt has good supportive system at home . Pt declares that he will stay away from alcohol and join [facility]. (2) Liver cirrhosis: Severe fatty liver/mild hepatomegaly/early cirrhosis- Likely combination of alcohol, diabetes, hyperlipidemia and obesity. Pt will join , abstain from alcohol , try to lose 10 lbs and control diabetes better in order to heal fatty liver and early cirrhosis. (3) Fatty liver: due to obesity, DM (4) Acid reflux: Omeprazole 20 mg p.o. daily or pantoprazole substitute. no symptoms today (5) Type II diabetes mellitus: Will switch from glipizide 5 mg daily to Januvia 50 mg p.o. daily, due to hepatic impairment. Patient is recommended to continue Accu-Cheks 3 times a day. Patient should follow-up with primary care physician within 7 days and have checked fasting lipid panel at that time. Check hemoglobin A1c = 7.8% (6) Hypertension: Continue amlodipine 5 mg p.o. daily and lisinopril 40 mg p.o. daily with hold parameters (7) Hyperlipidemia: Continue simvastatin 20 mg p.o. every evening. Follow-up with primary care physician in 7 days and do fasting lipid panel at that time. Total Time Total Time Spent Total Time Spent (In Minutes): over30 min Discharge Plan Discharge Items Patient Disposition: Home - Self-Care Reason For Visit: ALCOHOL WITHDRAWAL Discharge Diagnosis: alcohol withdrawal, elevated liver enzymes, diabetes mellitus ty 2, fatty liver, early liver cirrhosis Condition on Discharge: Good Activity: Resume your previous activity Non-emergency contact: Primary Care Provider Call non-emergency contact if: you have any medication questions, your symptoms worsen, your pain is not controlled, your temperature is above 101, your temperature is above 101.5, your wound has increased redness and your wound has increased drainage Follow-up/Referrals: Tatum Mcdermott CRNP [Primary Care Provider] - Diet: Carb Consistent or DM2 and Heart Healthy Addtl Attending Provider Instructions: We will stop GLIPIZIDE medication due to your liver damage. Instead you will Januvia 50 mg p.o. daily. Check your sugar 3 times a day before meals. Follow- up with your primary care physician within 1 week. Please check fasting lipid panel with your primary care physician in your next visit. Continue gabapentin 600 mg p.o. daily. Please join [facility]coh[facility] Anonymous as soon as possible after the discharge home. Continue abstaining from alcohol. Pending Studies at Discharge: No Stand-Alone Forms: My [facility], Smoking Cessation Medications and DC Order Prescriptions: New gabapentin 600 mg Tablet 600 mg PO Q24H Qty: 30 RF: 0 thiamine HCl (vitamin B1) [Vitamin B-1] 100 mg Tablet 100 mg PO QAM Qty: 30 RF: 0 folic acid 1 mg Tablet 1 mg PO QAM Qty: 30 RF: 0 Januvia 50 mg tablet 50 mg PO DAILY Qty: 30 RF: 0 Continued amlodipine 5 mg tablet 5 mg PO DAILY Qty: 90 RF: 3 lisinopril 40 mg tablet 40 mg PO DAILY Qty: 90 RF: 3 omeprazole 20 mg capsule,delayed release(DR/EC) 20 mg PO DAILY Qty: 90 RF: 3 simvastatin 20 mg tablet 20 mg PO QPM Qty: 90 RF: 3 Discontinued glipizide 5 mg tablet 5 mg PO DAILY Qty: 90 RF: 3 Discharge Orders: Discharge Order (Routine); Ordered 06/07/19 Ordered By: Elizabeth Hayward Admission Data Admit Date/Time: 06/05/19 20:42 Attending Provider: Elizabeth Hayward Admit Provider: Ruslan Bautista Primary Care Provider: Tatum Mcdermott Other Providers: Ruslan Bautista Other Interventions: Discharge Summary Assessment (RN) Last Done: 06/07/19 13:12
[2019-06-08] MEDS ORDERED: GABAPENTIN 600 MG TAB PO SCH (10:00)
[2019-06-09] MEDS ORDERED: GABAPENTIN 600 MG TAB PO SCH (22:00)
== END 2019-06-07 14:22 | disposition home or self-care (01) | DRG 897 ==
LOC: ED 14:28 → SUATTDRO 20:42 → 2S 20:42 → 4W 06-06 12:24

== ENCOUNTER 2024-08-19 08:36 | Inpatient (IN) ==
--- NOTE | 2024-08-19 09:09 | Emergency Department Note ---
ED Provider Note History of Present Illness Chief Complaint: Detox Request Stated Complaint: ALC DETOX REQ Time Seen by Provider: 08/19/24 08:58 Source: patient Mode of arrival: ambulatory Limitations: no limitations This patient is a 54-year-old male who presents to the emergency department requesting alcohol detox. Patient states that he has been a heavy drinker for over 20 years. He states that he usually drinks wine/beer, normally wine and states that he drinks about a box per day. He states that over the past 4 days he has been under increased stress and has been drinking even more heavily than normal. His last drink was wine last night. This morning he has had 3 episodes of vomiting. He states that he feels dizzy, lightheaded and anxious. He denies any history of alcohol withdrawal seizures. He states that he did go through detox in 2019 and was sober for a few months afterward but did relapse and has been drinking since. He denies any history of alcohol withdrawal seizures. Denies any drug use. No recent falls or trauma. Home Medications Medication Instructions Recorded Confirmed Type amlodipine 5 mg tablet 5 mg PO QAM #90 tabs 11/13/23 08/19/24 Rx lisinopril 40 mg tablet 40 mg PO QAM #90 tabs 11/13/23 08/19/24 Rx lorazepam 0.5 mg tablet (Ativan) 0.5 mg PO DAILY PRN anxiety #60 11/13/23 08/19/24 Rx tabs omeprazole 20 mg capsule,delayed 20 mg PO Q2D #90 caps 11/13/23 08/19/24 Rx release simvastatin 20 mg tablet 20 mg PO QAM #90 tabs 11/13/23 08/19/24 Rx metformin 500 mg tablet,extended 2,000 mg (4 x 500 mg) PO QAM #120 04/28/24 08/19/24 Rx release 24 hr tabs semaglutide 2 mg/dose (8 mg/3 mL) 2 mg subcut WK 08/19/24 08/19/24 History subcutaneous pen injector Allergies Allergy/AdvReac Type Severity Reaction Status Date / Time No Known Allergies Allergy Mild Verified 08/19/24 11:45 Past Med/Surg History Problem List (Updated 08/19/24 @ 11:09 by Nils Nicole PA-C) Hyponatremia Hypomagnesemia Alcohol withdrawal hx Colon cancer screening Encounter for pre-operative examination Acid reflux Anxiety Elevated transaminase level Hyperlipidemia Hypertension Type II diabetes mellitus Regular alcohol consumption Fatty liver Hyponatremia (Acute) Acute alcoholic hepatitis (Acute) Medical History Anxiety History of COVID-19 beginning 04/2022, home test, not hosp; cold symptoms-given antiviral tx>resolved. Diabetes mellitus, type 2 Hyperlipidemia GERD (gastroesophageal reflux disease) Hypertension Alcohol withdrawal hx Surgical History Hx of myringotomy w/tubes Family History Grandfather Colorectal cancer Grandmother Breast cancer Father Hypertension Anxiety Mother Anxiety Other Family history non-contributory Denies family history of Ovarian cancer Prostate cancer Myocardial infarction Social History (Updated 08/19/24 @ 09:35 by Wendi Delgado PA-C) Smoking Status: Former smoker Tobacco Type: Cigarettes Age Started Using Tobacco: 16; Age Quit Using Tobacco: 32; packs per day: 0; Second Hand Exposure: No; Do You Dip or Chew Tobacco: Yes (quit years ago; advised); Hx Alcohol Use: Yes Alcohol type: wine and hard liquor Alcohol Intake Frequency: 4 or More x per/Week Alcohol Intake Frequency Comment: daily - 1 box of wine/day Hx Substance Use: Yes Last Used Substance: Days (ago) Last Used Substance Other:: last week Preferred Language: Yoruba Communication Ability: Effective Visual Impairment: No Limitations Hearing Ability: Normal [employer] Required: No Beliefs That Will Affect Care: None marital status: Single Current Living Situation: Significant Other current occupational status: employed Other Information That Helps Us Care for You: No Feels Safe at Home: Yes Safety Concerns: Feels Safe At This Time Diet: regular caffeine: Yes Dental Care, Regularly: No Physical Activity Frequency: 3-4 Times per Week Seatbelt Use: always Sunscreen Use: Yes Assistive Devices: None Physical Exam Vital Signs Vital Signs - 24 hr 08/19/24 08:40 08/19/24 09:12 08/19/24 09:13 Temperature 36.6 C Temperature Source Temporal Artery Scan Pulse Rate 111 H 105 H 106 H Pulse Rate from SpO2 Sensor 105 H Respiratory Rate 20 19 Respiratory Effort / Characteristics Non-Labored Respiratory Depth Normal Respiratory Pattern Regular Blood Pressure 129/82 Blood Pressure Mean 97 Pulse Oximetry 96 96 Oxygen Delivery Method Room Air Room Air Oxygen Flow Rate Sepsis Recent Fever Within 48 Hours No Sepsis New/Unexplained Change in Mental Status N/A Sepsis Action Taken by Nursing No Action Required Oxygen Flow Rate - Titration Pulse Oximetry Post Tiitration 08/19/24 09:16 08/19/24 09:21 08/19/24 09:30 Temperature Temperature Source Pulse Rate 103 H Pulse Rate from SpO2 Sensor 102 H Respiratory Rate 12 Respiratory Effort / Characteristics Respiratory Depth Respiratory Pattern Blood Pressure 128/85 Blood Pressure Mean 92 Pulse Oximetry 96 Oxygen Delivery Method Room Air Room Air Oxygen Flow Rate Sepsis Recent Fever Within 48 Hours Sepsis New/Unexplained Change in Mental Status Sepsis Action Taken by Nursing Oxygen Flow Rate - Titration Pulse Oximetry Post Tiitration 08/19/24 09:30 08/19/24 09:42 08/19/24 09:51 Temperature Temperature Source Pulse Rate 108 H 94 H Pulse Rate from SpO2 Sensor 109 H 95 H Respiratory Rate 16 19 Respiratory Effort / Characteristics Respiratory Depth Respiratory Pattern Blood Pressure 128/85 Blood Pressure Mean 92 Pulse Oximetry 83 L 93 Oxygen Delivery Method Room Air Nasal Cannula Oxygen Flow Rate 4 Sepsis Recent Fever Within 48 Hours Sepsis New/Unexplained Change in Mental Status Sepsis Action Taken by Nursing Oxygen Flow Rate - Titration Pulse Oximetry Post Tiitration 08/19/24 09:53 08/19/24 10:00 08/19/24 10:00 Temperature Temperature Source Pulse Rate Pulse Rate from SpO2 Sensor Respiratory Rate Respiratory Effort / Characteristics Respiratory Depth Respiratory Pattern Blood Pressure 124/81 124/81 Blood Pressure Mean 90 90 Pulse Oximetry 83 L Oxygen Delivery Method Room Air Nasal Cannula Oxygen Flow Rate 0 Sepsis Recent Fever Within 48 Hours Sepsis New/Unexplained Change in Mental Status Sepsis Action Taken by Nursing Oxygen Flow Rate - Titration 4 Pulse Oximetry Post Tiitration 96 08/19/24 10:09 08/19/24 10:30 08/19/24 10:30 Temperature Temperature Source Pulse Rate 96 H Pulse Rate from SpO2 Sensor 96 H Respiratory Rate 17 Respiratory Effort / Characteristics Respiratory Depth Respiratory Pattern Blood Pressure 130/87 130/87 Blood Pressure Mean 93 93 Pulse Oximetry 98 Oxygen Delivery Method Nasal Cannula Oxygen Flow Rate 4 Sepsis Recent Fever Within 48 Hours Sepsis New/Unexplained Change in Mental Status Sepsis Action Taken by Nursing Oxygen Flow Rate - Titration Pulse Oximetry Post Tiitration 08/19/24 10:33 08/19/24 10:35 Temperature Temperature Source Pulse Rate 107 H Pulse Rate from SpO2 Sensor 107 H Respiratory Rate 18 Respiratory Effort / Characteristics Respiratory Depth Respiratory Pattern Blood Pressure Blood Pressure Mean Pulse Oximetry 97 97 Oxygen Delivery Method Room Air Room Air Nasal Cannula Oxygen Flow Rate 4 Sepsis Recent Fever Within 48 Hours Sepsis New/Unexplained Change in Mental Status Sepsis Action Taken by Nursing Oxygen Flow Rate - Titration 0 Pulse Oximetry Post Tiitration 97 VITALS: Vitals are noted on the nurse's note and reviewed by myself. GENERAL: This is a 54-year-old male, anxious appearing, flushed face, lying supine in bed. EARS: External auditory canals clear, tympanic membranes pearly turcios without erythema or effusion bilaterally. EYES: Pupils equal round and reactive to light and accommodation. Extraocular movements intact. MOUTH: Mucous membranes moist. NECK: Supple without nuchal rigidity. No lymphadenopathy. HEART: Tachycardic. Regular rhythm without murmurs gallops or rubs. LUNGS: Clear to auscultation bilaterally without wheezes, rales or rhonchi. ABDOMEN: Positive bowel sounds x 4. Soft, nontender to palpation. NEURO: Patient was alert and oriented to person place and time. Course Administered Medications Amlodipine Besylate (Amlodipine Besylate 5 Mg Tab) 5 mg PO QAM [facility] Stop: 09/18/24 15:06 Last Admin: 08/19/24 16:36 Dose: 5 mg Documented By: LACEY Pantoprazole Sodium (Protonix) 40 mg in 10 mls @ 5 mls/min IV DAILY MARY Stop: 09/18/24 10:59 Last Admin: 08/19/24 11:12 Dose: 5 mls/min Documented By: CEF Sodium Chloride (Nss) 1,000 mls @ 100 mls/hr IV .Q10H MARY Stop: 08/20/24 10:59 Last Admin: 08/19/24 11:18 Dose: 100 mls/hr Documented By: CEF Insulin Aspart (Insulin Aspart Per Unit Charge) 0 units SC ACHS MARY Stop: 09/18/24 11:29 Last Admin: 08/19/24 17:33 Dose: Not Given Documented By: Admin: 08/19/24 13:58 Dose: 2 units Documented By: BATSHEVA Co-signed By: KATHLEEN Lisinopril (Lisinopril 40 Mg Tab) 40 mg PO QAM MARY Stop: 09/18/24 15:06 Last Admin: 08/19/24 16:35 Dose: 40 mg Documented By: LACEY Lorazepam (Lorazepam 2 Mg/1 Ml Vial) 1 mg IV UD PRN; Protocol PRN Reason: EtOH Withdrawal AWSS Score 6,7 Stop: 09/18/24 10:34 Last Admin: 08/19/24 17:29 Dose: 1 mg Documented By: Admin: 08/19/24 17:28 Dose: 1 mg Documented By: Admin: 08/19/24 15:21 Dose: 1 mg Documented By: Admin: 08/19/24 11:26 Dose: 1 mg Documented By: CEF Lorazepam (Lorazepam 2 Mg/1 Ml Vial) 2 mg IV UD PRN; Protocol PRN Reason: EtOH Withdrawal AWSS Score 8,9 Stop: 09/18/24 10:34 Last Admin: 08/19/24 13:31 Dose: 2 mg Documented By: CEF Simvastatin (Simvastatin 20 Mg Tab) 20 mg PO QAM MARY Stop: 09/18/24 15:06 Last Admin: 08/19/24 16:35 Dose: 20 mg Documented By: LACEY Discontinued Medications Diazepam (Diazepam 5 Mg/Ml 10ml Vial) 10 mg IV NOW STA Stop: 08/19/24 09:16 Last Admin: 08/19/24 09:42 Dose: 10 mg Documented By: DANA Sodium Chloride (Nss) 1,000 mls @ 999 mls/hr IV .Q1H1M ONE Stop: 08/19/24 10:15 Last Infusion: 08/19/24 10:47 Dose: Infused Documented By: Admin: 08/19/24 09:43 Dose: 999 mls/hr Documented By: DANA Thiamine HCl 200 mg/ Sodium (Chloride) 52 mls @ 210 mls/hr IV NOW STA Stop: 08/19/24 09:37 Last Infusion: 08/19/24 10:47 Dose: Infused Documented By: Admin: 08/19/24 10:02 Dose: 210 mls/hr Documented By: GRETA Magnesium Sulfate/Dextrose (Magnesium Sulfate / D5w) 1 gm in 100 mls @ 50 mls/hr IV Q2H MARY Stop: 08/19/24 14:14 Last Infusion: 08/19/24 15:28 Dose: Infused Documented By: Admin: 08/19/24 13:23 Dose: 50 mls/hr Documented By: Infusion: 08/19/24 13:23 Dose: Infused Documented By: Admin: 08/19/24 11:29 Dose: 50 mls/hr Documented By: CEF Ondansetron HCl (Ondansetron Inj 2 Mg/Ml 2 Ml Vial) 4 mg IV NOW STA Stop: 08/19/24 09:21 Last Admin: 08/19/24 09:43 Dose: 4 mg Documented By: NMS Medical Decision Making Differential Diagnosis Differential diagnosis includes alcohol withdrawal, seizure, DTs, hyponatremia, electrolyte imbalance, dehydration, acute kidney injury, among others. Laboratory Data Attestation: I reviewed the patient's lab results. 08/19/24 09:10 08/19/24 14:08 Lab Results 08/19/24 08/19/24 08/19/24 Range/Units 09:10 09:21 10:07 WBC 8.65 (4.8-10.8) K/ul RBC 4.52 L (4.70-6.10) M/uL Hgb 14.3 (14.0-18.0) g/dl Hct 38.1 L (42.0-52.0) % MCV 84.3 (80.0-100.0) fL MCH 31.6 (25.0-34.0) pg MCHC 37.5 H (32.0-36.0) g/dL RDW Std Deviation 35.2 L (36.4-46.3) fL RDW Coeff of Ashlye 11.5 (11.5-14.5) % Plt Count 234 (130-400) K/uL MPV 10.8 (9.4-12.4) fL Immature Gran % (Auto) 0.2 % Neut % (Auto) 78.1 % Lymph % (Auto) 8.4 % Boyd % (Auto) 12.8 % Eos % (Auto) 0.2 % Baso % (Auto) 0.3 % Neut # (Auto) 6.74 H (1.40-6.50) K/uL Lymph # (Auto) 0.73 L (1.20-3.40) K/uL Boyd # (Auto) 1.11 H (0.11-0.59) K/uL Eos # (Auto) 0.02 (0.00-0.50) K/uL Baso # (Auto) 0.03 (0.00-0.20) K/uL Immature Gran # (Auto) 0.02 (0.01-0.20) K/uL PT Cancelled 11.2 INR Cancelled 1.0 Sodium 118 L* (136-145) mmol/L Potassium 3.9 (3.5-5.1) mmol/L Chloride 82 L (98-107) mmol/L Carbon Dioxide 21 (21-32) mmol/L Anion Gap 15 H (3-11) BUN 10 (6-23) mg/dl Creatinine 0.55 L (0.6-1.4) mg/dl Est Cr Clr Drug Dosing 185.3 ml/min eGFR 119.24 BUN/Creatinine Ratio 18.2 (10-20) Glucose 179 H (70-99(Fasting)) mg/dl POC Glucose 176 H (70-99) mg/dl Osmolality 287 (280-300) mOsm/kg Calcium 7.9 L (8.6-10.3) mg/dl Magnesium 1.5 L (1.7-2.4) mg/dl Total Bilirubin 1.7 H (0.2-1.0) mg/dl AST 82 H (13-39) U/L ALT 42 (7-52) U/L Alkaline Phosphatase 61 (34-104) U/L Total Protein 7.8 (6.0-8.3) gm/dl Albumin 4.3 (3.4-5.0) gm/dl Globulin 3.5 (2.5-4.0) gm/dl Albumin/Globulin Ratio 1.2 (0.9-2) Ethyl Alcohol mg/dL 137.8 H (<10.0) mg/dl Imaging Data Attestation: I personally reviewed and interpreted this imaging study as follows: Radiologist's Impression: Chest X-Ray 08/19/24 09:17 XR chest 1V portable CLINICAL HISTORY: alcohol withdrawal COMPARISON STUDY: None FINDINGS: Heart size and pulmonary vasculature are normal. No effusion, consolidation, or pneumothorax. IMPRESSION: No acute findings. ACT 112: Negative or not required by law. Electronically signed by: Zion Guerra M.D. 08/19/2024 9:39 AM ECG Data Attestation: I personally reviewed and interpreted this ECG as follows: Indication: + other Rate (beats per minute): 103 Rhythm: + sinus tachycardia ECG ST segments: + Normal ST segments Comparison ECG Date: no prior available MDM Narrative Continuous quality assurance monitor body: Order was placed for continuous quality assurance monitor body. Patient was placed on the quality assurance monitor body. Patient was noted to be in sinus tachycardia at an initial rate of 111 bpm. The patient is a 54-year-old male who presents today requesting alcohol detox. Patient has a history of alcohol use disorder and states he has been drinking very heavily for the past 4 days. He is tachycardic on arrival, reports anxiety and shakiness. Alcohol level at this time is 137. Does have an elevation of his AST at 82. Patient noted to be hyponatremic with a sodium of 118. Chloride is low, anion gap elevated suggestive of alcoholic ketoacidosis. On initial evaluation of the patient, 1 L of IV saline was ordered, 10 mg IV diazepam, thiamine and Zofran. Patient did feel better after this. He will clearly need admission for treatment of his alcohol withdrawal symptoms as well as treatment of his hyponatremia. Case was discussed with the [facility] hospitalist service who agreed to evaluate the patient for further care. Discharge Plan Visit Data Chief Complaint: Detox Request Stated Complaint: ALC DETOX REQ ED Provider: Ja Healy ED Midlevel Provider: Wendi Delgado Patient Disposition: Admitted As Inpatient Discharge Instructions Interventions: ED Discharge Assessment Last Done: 08/19/24 14:20
[2024-08-19 09:40] LABS: Basophils # (auto) 0.03 K/uL (0.00-0.20); Basophils % (auto) 0.3 %; Eosinophils # (auto) 0.02 K/uL (0.00-0.50); Eosinophils % (auto) 0.2 %; Hematocrit (blood only) 38.1 % (42.0-52.0); Hemoglobin 14.3 g/dl (14.0-18.0); Immature Granulocytes # (auto) 0.02 K/uL (0.01-0.20); Immature Granulocytes % (auto) 0.2 %; Lymphocytes # (auto) 0.73 K/uL (1.20-3.40); Lymphocytes % (auto) 8.4 %; Mean Corpuscular Hemoglobin 31.6 pg (25.0-34.0); Mean Corpuscular Hgb Conc 37.5 g/dL (32.0-36.0); Mean Corpuscular Volume 84.3 fL (80.0-100.0); Mean Platelet Volume 10.8 fL (9.4-12.4); Monocytes # (auto) 1.11 K/uL (0.11-0.59); Monocytes % (auto) 12.8 %; Neutrophils # (auto) 6.74 K/uL (1.40-6.50); Neutrophils % (auto) 78.1 %; Platelet Count 234 K/uL (130-400); RDW Coefficient of Variation 11.5 % (11.5-14.5); RDW Standard Deviation 35.2 fL (36.4-46.3); Red Blood Count 4.52 M/uL (4.70-6.10); White Blood Count 8.65 K/ul (4.8-10.8)
--- NOTE | 2024-08-19 09:40 | XRay Report ---
XR chest 1V portable CLINICAL HISTORY: alcohol withdrawal COMPARISON STUDY: None FINDINGS: Heart size and pulmonary vasculature are normal. No effusion, consolidation, or pneumothora x. IMPRESSION: No acute findings. ACT 112: Negative or not required by law. Electronically signed by: Zion Guerra M.D. 08/19/2024 9:39 AM
[2024-08-19] MEDS: diazePAM 5 MG/ML 10ML VIAL IV STA (09:42)
[2024-08-19] MEDS: SODIUM CHLORIDE 0.9% 1,000 ML IV ONE (09:43)
[2024-08-19] MEDS: ONDANSETRON INJ 2 MG/ML 2 ML VIAL IV STA (09:43)
[2024-08-19 09:45] LABS: Albumin Globulin Ratio 1.2 (0.9-2); Albumin Level 4.3 gm/dl (3.4-5.0); BUN Creatinine Ratio 18.2 (10-20); Bilirubin,Total 1.7 mg/dl (0.2-1.0); Calcium 7.9 mg/dl (8.6-10.3); Creatinine Clr Calc Pharmacy 185.3 ml/min; Globulin 3.5 gm/dl (2.5-4.0); Magnesium 1.5 mg/dl (1.7-2.4); Potassium 3.9 mmol/L (3.5-5.1); Total Protein 7.8 gm/dl (6.0-8.3)
[2024-08-19] MEDS: THIAMINE HCL 200 MG in SODIUM CHLORIDE 0.9% 50 ML IV STA (10:02)
--- NOTE | 2024-08-19 10:09 | History & Physical Report ---
Date of Service August 19, 2024 Assessment & Plan (1) Alcohol withdrawal: (2) Hyponatremia: (3) Hypomagnesemia: Plan Len is a 54-year-old male with PMH of alcohol withdrawal, alcoholic hepatitis, T2DM, HTN, HLD, and anxiety. He presented on 08/19 for an alcoholic detox request. Patient reports he has been under increased stress over the past 4 days after his broke her ankle. He reports he has been drinking 10 glasses of wine per day. His last drink was last night on the evening of 08/18, when he was drinking vodka. #Alcohol withdrawal Ethyl alcohol level elevated at 137 on arrival AWSS active protocol with IV Ativan PRN Daily thiamine and folate supplementation Continuous telemetry monitoring #Hyponatremia Sodium 118 on arrival; trend q4h Suspect beer potomania in the setting of significant alcohol use Urine osm, urine sodium, and serum osm ordered, pending Seizure precautions Ativan 2 mg IV q5m PRN on-call for active seizure-like activity #Hypomagnesemia Magnesium 1.5 on arrival Magnesium sulfate 1 g IV x 2 Recheck a.m. mag #Nausea and vomiting Protonix 40 mg IV QAM IV antiemetics as needed; QTc okay #Hypoxia Noted on arrival; 83% on RA confirmed by nursing staff CXR without acute findings Initially, some concern for aspiration event given patient was vomiting earlier, however patient was 96% on RA throughout physical exam on admission Continuous pulse oximetry for now #T2DM Last A1c at 6.1% on 05/08/2024 Glucose 176 on admission Hold metformin, semaglutide Will defer Lantus given poor oral intake at this time SSI with target BSG range 110-140mg/dL, CF 45, carb ratio 15 Clear liquid diet for now, advance to T2DM diet as tolerated BSG ACHS Adjust regimen as needed Chronic stable conditions: HTN-amlodipine, lisinopril HLD-simvastatin Disposition: Admit to PCU telemetry Full code Clear liquid diet for now, advance to T2DM diet as tolerated DVT PPx: Lovenox 40 mg SQ q24h History of Present Illness Chief Complaint: Detox request Primary Care Provider: SISSY Melendrez Len is a 54-year-old male with PMH of alcohol withdrawal, alcoholic hepatitis, T2DM, HTN, HLD, and anxiety. He presented on 08/19 for an alcoholic detox request. Patient reports he has been under increased stress over the past 4 days after his broke her ankle. He reports he has been drinking 10 glasses of wine per day. His last drink was last night on the evening of 08/18, when he was drinking vodka. He reports he has been drinking regularly for an extended period of time. His last alcohol withdrawal was in 2019. He is unsure what medications he took at that time that worked for him. He denies prior history of alcohol withdrawal seizures or history of DTs/visual hallucinations. That said, he believes he was seeing things last night, and when asked to describe if they were visual hallucinations, he says that they were more like "movements". Note: Patient did take an edible last night, and does endorse marijuana use at baseline. Patient has experienced lightheadedness, feeling off balance, and vomiting since last night. He reports he did vomited 4 times this morning (bili ous vomiting) no blood in his vomit. He denies any aspiration, or feeling like the vomit went down the wrong pipe. Patient did not take his regular morning medicine today, but does report good compliance with taking them on a daily basis; last took yesterday on the morning of 08/18. No recent change in medications. No prior history of seizures. He denies syncope or recent injuries to his head or neck. He is not on supplemental oxygen at baseline or CPAP at night. No sick contacts. No recent change in diet. He denies tobacco use or recreational drug use other than marijuana. Patient is tachycardic at 107 bpm at time of admission; SpO2 96% on RA; vitals otherwise stable. ED course: NSS 1000 mL IV Vitamin B1 200 mg IV Diazepam 10 mg IV Zofran 4 mg IV ROS: Patient endorses mild tremors, dizziness, lightheadedness, unsteady on feet, potential visual changes (may have had visual hallucinations last night while on edibles), chest tightness (which patient attributes to anxiety), nausea, bilious vomiting, and decreased urinary frequency. Patient denies fever, chills, night-sweats, photophobia, neck stiffness/pain, chest palpitations, pleuritic CP, cough, SOB, abdominal pain, hematemsis, diarrhea, or numbness/tingling in the arms or legs. Allergies Allergy/AdvReac Type Severity Reaction Status Date / Time No Known Allergies Allergy Mild Verified 06/24/24 09:31 Home Medications Medication Instructions Recorded Confirmed Type amlodipine 5 mg tablet 5 mg PO QAM #90 tabs 11/13/23 06/24/24 Rx lisinopril 40 mg tablet 40 mg PO QAM #90 tabs 11/13/23 06/24/24 Rx lorazepam 0.5 mg tablet (Ativan) 0.5 mg PO DAILY PRN anxiety #60 11/13/2306/24 Rx tabs omeprazole 20 mg capsule,delayed 20 mg PO Q2D #90 caps 11/13/23 06/24/24 Rx release simvastatin 20 mg tablet 20 mg PO QAM #90 tabs 11/13/23 06/24/24 Rx metformin 500 mg tablet,extended 2,000 mg (4 x 500 mg) PO QAM #120 04/28/24 06/24/24 Rx release 24 hr tabs semaglutide 2 mg/dose (8 mg/3 mL) 2 mg (0.75 mL) subcut UD #3 mL 05/14/24 06/24/24 Rx subcutaneous pen injector doxycycline hyclate 100 mg tablet 100 mg PO BID 7 days #14 tabs 06/24/24 06/24/24 Rx Past Med/Surg History Problem List (Updated 08/19/24 @ 11:09 by Nils Nicole PA-C) Hyponatremia Hypomagnesemia Alcohol withdrawal hx Colon cancer screening Encounter for pre-operative examination Acid reflux Anxiety Elevated transaminase level Hyperlipidemia Hypertension Type II diabetes mellitus Regular alcohol consumption Fatty liver Hyponatremia (Acute) Acute alcoholic hepatitis (Acute) Medical History Anxiety History of COVID-19 beginning 04/2022, home test, not hosp; cold symptoms-given antiviral tx>reso lved. Diabetes mellitus, type 2 Hyperlipidemia GERD (gastroesophageal reflux disease) Hypertension Alcohol withdrawal hx Surgical History Hx of myringotomy w/tubes Family History Grandfather Colorectal cancer Grandmother Breast cancer Father Hypertension Anxiety Mother Anxiety Other Family history non-contributory Denies family history of Ovarian cancer Prostate cancer Myocardial infarction Social History (Updated 08/19/24 @ 09:35 by Wendi Delgado PA-C) Smoking Status: Former smoker Tobacco Type: Cigarettes Age Started Using Tobacco: 16; Age Quit Using Tobacco: 32; packs per day: 0; Second Hand Exposure: No; Do You Dip or Chew Tobacco: Yes (quit years ago; advised); Hx Alcohol Use: Yes Alcohol type: beer and wine Alcohol Intake Frequency: 4 or More x per/Week Alcohol Intake Frequency Comment: daily - 1 box of wine/day Hx Substance Use: Yes Last Used Substance Other:: last week Preferred Language: Romanian Communication Ability: Effective Visual Impairment: No Limitations Hearing Ability: Normal Class C Driver Required: No Beliefs That Will Affect Care: None marital status: Single Current Living Situation: Significant Other current occupational status: employed Feels Safe at Home: Yes Diet: regular caffeine: Yes Dental Care, Regularly: No Physical Activity Frequency: 3-4 Times per Week Seatbelt Use: always Sunscreen Use: Yes Assistive Devices: None Review of Systems Review of Systems: See HPI above Physical Exam Physical Exam: General: no acute distress; anxious; non-toxic appearing; cooperative; SpO2 96% on RA HEENT: normocephalic, atraumatic; no scleral icterus; PERRLA; vision and hearing grossly intact Neck: supple; no lymphadenopathy; trachea midline Skin: Skin is warm, erythematous, and mildly diaphoretic; no cyanosis; no rashes, bruising, lesions, or erythema noted CV: chest wall NTP; RR, mildly tachycardic around 107 bpm; S1/S2 normal; no murmurs/rubs/gallops; pulses intact and symmetric at radial, DP, and PT Lungs: no acute respiratory distress; symmetrical chest wall expansion; clear breath sounds across all lung feldman w/o adventitious sounds; no wheezing ABD: Soft, NTP; BS present; no rebound/guarding; no distention MSK: Patient is mildly tremulous at bedside; no edema noted in the LEs b/l, nonerythematous Neuro: A&Ox3; normal mood and affect; fluent speech; no focal deficits; sensation intact and symmetric lymph trace bilaterally Results & Data Results & Data Vital Signs (Past 12 Hours) Vital Signs Temp Pulse Resp BP Pulse Ox O2 Del Method O2 Flow Rate 08/19/24 09:53 83 L Room Air, Nasal Cannula 0 08/19/24 09:16 Room Air 08/19/24 09:13 106 H 08/19/24 08:40 36.6 C 111 H 20 129/82 96 Room Air Laboratory Results Abnormal lab results 08/19/24 08/19/24 Range/Units 09:10 09:21 RBC 4.52 L (4.70-6.10) M/uL Hct 38.1 L (42.0-52.0) % MCHC 37.5 H (32.0-36.0) g/dL RDW Std Deviation 35.2 L (36.4-46.3) fL Neut # (Auto) 6.74 H (1.40-6.50) K/uL Lymph # (Auto) 0.73 L (1.20-3.40) K/uL [place] # (Auto) 1.11 H (0.11-0.59) K/uL Sodium 118 L* (136-145) mmol/L Chloride 82 L (98-107) mmol/L Anion Gap 15 H (3-11) Creatinine 0.55 L (0.6-1.4) mg/dl Glucose 179 H (70-99(Fasting)) mg/dl POC Glucose 176 H (70-99) mg/dl Calcium 7.9 L (8.6-10.3) mg/dl Magnesium 1.5 L (1.7-2.4) mg/dl Total Bilirubin 1.7 H (0.2-1.0) mg/dl AST 82 H (13-39) U/L Ethyl Alcohol mg/dL 137.8 H (<10.0) mg/dl Diagnostic Findings Chest X-Ray 08/19/24 09:17 XR chest 1V portable CLINICAL HISTORY: alcohol withdrawal COMPARISON STUDY: None FINDINGS: Heart size and pulmonary vasculature are normal. No effusion, consolidation, or pneumothorax. IMPRESSION: No acute findings. ACT 112: Negative or not required by law. Electronically signed by: Zion Guerra M.D. 08/19/2024 9:39 AM ECG Additional Comments: ECG revealed sinus tachycardia at 103 bpm; QTc 461; no prior EKGs for comparison Code Status & VTE Plan Code Status Full code VTE Prophylaxis Plan VTE Prophylaxis will be ordered: Yes Supervising Physician Co-Signing Physician Notes I have personally seen, evaluated and examined the patient. I have also personally discussed the management of the patient with the resident physician/OTTO and I agree with the exam findings documented in the history and physical examination and the documented assessment and plan unless otherwise stated below. Brief Exam: In general pleasant 54-year-old male he is alert and oriented x 3 at the time my exam. He states the last time he withdrew he was in the hospital for approximately 2 days. As documented never had a withdrawal seizure that he is aware of. Denies any self-harm. Distant. Stressed in the setting of alc oholism with increased alcohol intake and then had a edible last evening with unknown drug. He does complain of nausea and heartburn. No vomiting since early this per diem physical therapist. HEENT: Normocephalic atraumatic mucous membranes are significantly dry. Heart: Regular rate and rhythm I do not appreciate murmur or ectopy or rub. He is mildly tachycardic in the low 100s. Lungs: Are clear bilaterally. No adventitious sounds. Abdomen: Protuberant soft, nontender. No appreciable organomegaly or abdominal bruits. Extremities: Intact with no significant edema. Neurologically: He is alert and oriented. Mildly tremulous. Anxious appearing. No active DTs whatsoever. No hallucinations excetra. Assessment/plan: As described above. Alcohol withdrawal protocol. Seizure precautions. Obtain a lactic acid level with repeat BMP. With frequent BMPs given his hyponatremia. Hydrate gently with normal saline to the 100 ingestion for his sodium levels and hydration status. IV Protonix for his nausea and heartburn. Clear liquids for now with sliding scale. Please refer to orders for further planning. PG Care Time/CCT Total # of Minutes Spent Total Time Spent with Patient: Total time spent is greater than 50% in coordination of care (as documented) at patient's floor/unit and/or counseling patient: C[place] [address] INT INP/OBS CARE MIN Patient Type Established Medical Decision Making High Complexity Diagnoses Alcohol withdrawal F10.239 Complication of substance-induced condition: with unspecified complication Hyponatremia E87.1 Hypomagnesemia E83.42 (1) Alcohol withdrawal Complication of substance-induced condition: with unspecified complication Qualified Code(s): F10.239 - Alcohol dependence with withdrawal, unspecified
[2024-08-19] MEDS ORDERED: LORazepam 2 MG/1 ML VIAL IV PRN ×2 (10:35→10:38)
[2024-08-19] MEDS ORDERED: Ativan IV Alcohol Withdrawal--Active Protocol IV PRN (10:35)
[2024-08-19 10:48] LABS: Prothrombin Time 11.2 Seconds (9.0-12.0)
[2024-08-19] MEDS ORDERED: GLUCAGON FOR INJ 1 MG VIAL SQ PRN (10:55)
[2024-08-19] MEDS ORDERED: CARBOHYDRATES FOR HYPOGLYCEMIA PO PRN (10:55)
[2024-08-19] MEDS ORDERED: GLUCOSE 40% GEL 15 GM TUBE PO PRN (10:55)
[2024-08-19] MEDS ORDERED: DEXTROSE 50% 50 ML SYRINGE IV PRN (10:55)
[2024-08-19] MEDS ORDERED: GLUCOSE 10 TAB/TUBE PO PRN (10:55)
[2024-08-19] MEDS: PANTOprazole 40 MG/10 ML SYR IV SCH (11:12)
[2024-08-19] MEDS: SODIUM CHLORIDE 0.9% 1,000 ML IV SCH (11:18)
[2024-08-19] MEDS: LORazepam 2 MG/1 ML VIAL IV PRN ×2 (11:26→13:31)
[2024-08-19] MEDS: MAGNESIUM SULFATE / D5W 1 GM/100 ML BAG IV SCH (11:29)
[2024-08-19] MEDS: INSULIN ASPART PER UNIT CHARGE SC SCH (13:58)
[2024-08-19 14:43] LABS: BUN Creatinine Ratio 13.8 (10-20); Calcium 7.7 mg/dl (8.6-10.3); Creatinine Clr Calc Pharmacy 175.7 ml/min; Potassium 3.8 mmol/L (3.5-5.1)
[2024-08-19] MEDS ORDERED: ONDANSETRON INJ 2 MG/ML 2 ML VIAL IV PRN (15:07)
[2024-08-19] MEDS ORDERED: ACETAMINOPHEN 325 MG TAB PO PRN (15:07)
--- NOTE | 2024-08-19 16:05 | Electrocardiogram Report ---
Test Reason : Blood Pressure : */* mmHG Vent. Rate : 103 BPM Atrial Rate : 103 BPM P-R Int : 144 ms QRS Dur : 80 ms QT Int : 352 ms P-R-T Axes : 37 39 26 degrees QTcB Int : 461 ms Sinus tachycardia Otherwise normal ECG No previous ECGs available Confirmed by Perfecto Echeverria ([id number]) on 08/19/2024 4:04:46 PM Referred By: REFERRED SELF Confirmed By: Perfecto Echeverria
[2024-08-19] MEDS: SIMVASTATIN 20 MG TAB PO SCH (16:35)
[2024-08-19] MEDS: lisinopril 40 MG TAB PO SCH (16:35)
[2024-08-19] MEDS: amLODIPine BESYLATE 5 MG TAB PO SCH (16:36)
[2024-08-19 16:37] LABS: Appearance Urine Clear (Clear); Bilirubin Urine Negative (Negative); Blood Urine Negative (Negative); Color Urine Yellow; Glucose Urine UA Negative (Negative); Ketones Urine 1+ (Negative); Leukocyte Esterase Urine Negative (Negative); Nitrite Urine Negative (Negative); Protein Urine Negative (Negative); Specific Gravity Urine 1.007 (1.000-1.030); Urobilinogen Urine Negative (Negative); pH Urine 6.5 (4.5-7.5)
[2024-08-19 17:22] LABS: Amphetamines+Metham, Urine Neg (Neg); Barbiturates, Urine Neg (Neg); Benzodiazepine, Urine Neg (Neg); Cocaine, Urine Neg (Neg); Fentanyl, Urine Neg (Neg); MDMA (Ecstacy), Urine Neg (Neg); Marijuana, Urine Pos (Neg); Methadone, Urine Neg (Neg); Opiate, Urine Neg (Neg); Phencyclidine, Urine Neg (Neg)
[2024-08-19 18:54] LABS: Calcium 7.8 mg/dl (8.6-10.3); Potassium 3.8 mmol/L (3.5-5.1)
[2024-08-19 19:00] LABS: BUN Creatinine Ratio 12.7 (10-20); Creatinine Clr Calc Pharmacy 162.6 ml/min
[2024-08-19] MEDS: ENOXAPARIN INJ 40 MG/0.4 ML SYR SQ SCH (20:00)
[2024-08-19 22:06] LABS: BUN Creatinine Ratio 11.1 (10-20); Calcium 7.9 mg/dl (8.6-10.3); Creatinine Clr Calc Pharmacy 162.6 ml/min; Potassium 3.6 mmol/L (3.5-5.1)
[2024-08-20 01:55] LABS: BUN Creatinine Ratio 10.1 (10-20); Calcium 7.5 mg/dl (8.6-10.3); Creatinine Clr Calc Pharmacy 148.4 ml/min; Potassium 3.7 mmol/L (3.5-5.1)
[2024-08-20 06:15] LABS: Basophils # (auto) 0.03 K/uL (0.00-0.20); Basophils % (auto) 0.6 %; Eosinophils # (auto) 0.03 K/uL (0.00-0.50); Eosinophils % (auto) 0.6 %; Hematocrit (blood only) 36.5 % (42.0-52.0); Hemoglobin 13.3 g/dl (14.0-18.0); Immature Granulocytes # (auto) 0.01 K/uL (0.01-0.20); Immature Granulocytes % (auto) 0.2 %; Lymphocytes # (auto) 0.88 K/uL (1.20-3.40); Lymphocytes % (auto) 16.7 %; Mean Corpuscular Hemoglobin 31.6 pg (25.0-34.0); Mean Corpuscular Hgb Conc 36.4 g/dL (32.0-36.0); Mean Corpuscular Volume 86.7 fL (80.0-100.0); Mean Platelet Volume 10.2 fL (9.4-12.4); Monocytes % (auto) 15.2 %; Neutrophils # (auto) 3.52 K/uL (1.40-6.50); Neutrophils % (auto) 66.7 %; Platelet Count 168 K/uL (130-400); RDW Coefficient of Variation 11.9 % (11.5-14.5); RDW Standard Deviation 37.6 fL (36.4-46.3); Red Blood Count 4.21 M/uL (4.70-6.10); White Blood Count 5.27 K/ul (4.8-10.8)
[2024-08-20 06:23] LABS: Albumin Globulin Ratio 1.2 (0.9-2); Albumin Level 3.5 gm/dl (3.4-5.0); BUN Creatinine Ratio 12.5 (10-20); Bilirubin,Total 1.1 mg/dl (0.2-1.0); Calcium 7.5 mg/dl (8.6-10.3); Potassium 3.7 mmol/L (3.5-5.1); Total Protein 6.5 gm/dl (6.0-8.3)
[2024-08-20] MEDS: THIAMINE HCL 100 MG TAB PO SCH (07:38)
[2024-08-20] MEDS: FOLIC ACID 1 MG TAB PO SCH (07:38)
--- NOTE | 2024-08-20 07:59 | Hospitalist Progress Note ---
Date of Service August 20, 2024 Assessment & Plan (1) Alcohol withdrawal: (2) Hyponatremia: (3) Hypomagnesemia: Plan Len is a 54-year-old male with PMH of alcohol withdrawal, alcoholic hepatitis, T2DM, HTN, HLD, and anxiety. He presented on 08/19 for an alcoholic detox request. Patient reports he has been under increased stress over the past 4 days after his broke her ankle. He reports he has been drinking 10 glasses of wine per day. His last drink was last night on the evening of 08/18, when he was drinking vodka. #Alcohol withdrawal Ethyl alcohol level elevated at 137 on arrival AWSS active protocol with IV Ativan PRN Daily thiamine and folate supplementation Patiently placed on gabapentin protocol likely discharge on the same #Hyponatremia improving Sodium 118 on arrival; up to 129 Urine osm low suggesting attempts at auto correction, urine sodium, and serum osm ordered, pending Seizure precautions Ativan 2 mg IV q5m PRN on-call for active seizure-like activity #Hypomagnesemia Magnesium 1.5 on arrival replete #Nausea and vomiting Protonix 40 mg IV QAM IV antiemetics as needed; QTc okay #Hypoxia Noted on arrival; 83% on RA confirmed by nursing staff CXR without acute findings Initially, some concern for aspiration event given patient was vomiting earlier, however patient was 96% on RA throughout physical exam on admission Continuous pulse oximetry for now #T2DM Last A1c at 6.1% on 05/08/2024 Hold metformin, semaglutide Will defer Lantus given poor oral intake at this time SSI with target BSG range 110-140mg/dL, CF 45, carb ratio 15 Clear liquid diet for now, advance to T2DM diet as tolerated BSG ACHS Adjust regimen as needed Chronic stable conditions: HTN-amlodipine, lisinopril HLD-simvastatin Full code DVT PPx: Lovenox 40 mg SQ q24h Admission and Anticipated Discharge Date Admission Date: August 19, 2024 Subjective Patient was doing well feels his withdrawal is much improved from yesterday. Did require lorazepam dosing. We discussed the gabapentin. He has been on this in the past we will institute gabapentin withdrawal program. Patient feels he is able to do this at home without going to an inpatient center he has not been to AA in the past and it passes on this on his own. Physical Exam Physical Exam: Awake alert appropriate nontremulous Vital signs show no tachycardia Results & Data Results & Data Vital Signs (Past 12 Hours) Vital Signs Temp Pulse Pulse Resp BP BP Pulse Ox 08/20/24 03:35 98.4 F 103 H 20 142/82 H 95 08/19/24 23:53 98.4 F 119 H 20 128/78 96 08/19/24 23:10 107 H 08/19/24 20:07 98.6 F 112 H 20 122/77 94 O2 Del Method 08/20/24 03:35 Room Air 08/19/24 23:53 Room Air 08/19/24 23:10 08/19/24 20:07 Room Air Laboratory Results Reviewed CBC Reviewed chemistryonly mild elevation of AST PG Care Time/CCT Total # of Minutes Spent Total Time Spent with Patient: Total time spent is greater than 50% in coordination of care (as documented) at patient's floor/unit and/or counseling patient: Coding Level of Care Code 44312 SUB INP/OBS CARE 3/50MIN Diagnoses Alcohol withdrawal F10.239 Complication of substance-induced condition: with unspecified complication Hyponatremia E87.1 Hypomagnesemia E83.42 (1) Alcohol withdrawal Complication of substance-induced condition: with unspecified complication Qualified Code(s): F10.239 - Alcohol dependence with withdrawal, unspecified
[2024-08-20] MEDS ORDERED: GABAPENTIN 1200MG ALCOHOL WITHDRAWAL LOAD PO SCH (12:45)
[2024-08-20] MEDS: GABAPENTIN 600 MG TAB PO ONE (13:20)
[2024-08-20] MEDS: GABAPENTIN 600 MG TAB PO SCH (17:44)
[2024-08-21] MEDS: GABAPENTIN 600 MG TAB PO SCH (08:46)
--- NOTE | 2024-08-21 11:07 | Hospitalist Progress Note ---
Date of Service August 21, 2024 Assessment & Plan (1) Alcohol withdrawal: (2) Hyponatremia: (3) Hypomagnesemia: Lilian Harrington is a 54-year-old male with PMH of alcohol withdrawal, alcoholic hepatitis, T2DM, HTN, HLD, and anxiety. He presented on 08/19 for an alcoholic detox request. Patient reports he has been under increased stress over the past 4 days after his broke her ankle. He reports he has been drinking 10 glasses of wine per day. His last drink was last night on the evening of 08/18, when he was drinking vodka. #Alcohol withdrawal Ethyl alcohol level elevated at 137 on arrival AWSS active protocol with IV Ativan PRN Daily thiamine and folate supplementation Now resolved patient adviced on the need to stop alcohol He now wants to go to alcohol rehab #Hyponatremia improving Sodium 118 on arrival; up to 129 Urine osm low suggesting attempts at auto correction, urine sodium, and serum osm ordered, pending Seizure precautions Ativan 2 mg IV q5m PRN on-call for active seizure-like activity #Hypomagnesemia Magnesium 1.5 on arrival replete #Nausea and vomiting Protonix 40 mg IV QAM IV antiemetics as needed; QTc okay #Hypoxia Noted on arrival; 83% on RA confirmed by nursing staff CXR without acute findings Initially, some concern for aspiration event given patient was vomiting earlier, however patient was 96% on RA throughout physical exam on admission Continuous pulse oximetry for now #T2DM Last A1c at 6.1% on 05/08/2024 Hold metformin, semaglutide Will defer Lantus given poor oral intake at this time SSI with target BSG range 110-140mg/dL, CF 45, carb ratio 15 Clear liquid diet for now, advance to T2DM diet as tolerated BSG ACHS Adjust regimen as needed Chronic stable conditions: HTN-amlodipine, lisinopril HLD-simvastatin Full code DVT PPx: Lovenox 40 mg SQ q24h Plan is for alcohol rehab Admission and Anticipated Discharge Date Admission Date: August 19, 2024 Subjective patient seen and examined, feels a lot better, no tremors today Review of Systems Review of Systems: All systems reviewed are negative, apart from the ones contained in the history. Physical Exam Physical Exam: The patient is awake, alert and oriented 3, well developed and well nourished, normocephalic and atraumatic, lying in bed and in no acute distress. HEENT--PERRL, EOMI, mucous membranes and oropharynx mildly dry Neck--supple. No JVD. No bruits. Thyroid normal, trachea midline, no adenopathy. Heart--normal S1 and S2. No murmurs, rubs or gallops. Lungs--clear bilaterally, no respiratory distress, no accessory muscle use. Abdomen--normal bowel sounds and soft. Extremities--no cyanosis or clubbing. No edema. Dermatologic--normal skin turgor, normal color, no abnormal lymph nodes, no rash. Neurologic--cranial nerves II through XII grossly intact. Rheumatologic--normal range of motion. Psychiatric--normal affect. Results & Data Results & Data Vital Signs (Past 12 Hours) Vital Signs Temp Pulse Resp BP BP Pulse Ox O2 Del Method 08/21/24 10:42 97.3 F L 101 H 18 122/69 128/78 99 08/21/24 08:11 97.3 F L 101 H 18 122/69 99 Room Air 08/21/24 03:40 98.1 F 77 18 121/80 95 Room Air 08/20/24 23:37 98.1 F 94 H 20 106/66 96 Room Air PG Care Time/CCT Total # of Minutes Spent Total Time Spent with Patient: Total time spent is greater than 50% in coordination of care (as documented) at patient's floor/unit and/or counseling patient: Coding Level of Care Code 23835 SUB INP/OBS CARE 2/35MIN Diagnoses Alcohol withdrawal F10.239 Complication of substance-induced condition: with unspecified complication Hyponatremia E87.1 Hypomagnesemia E83.42 Time Spent (min) 35 (1) Alcohol withdrawal Complication of substance-induced condition: with unspecified complication Qualified Code(s): F10.239 - Alcohol dependence with withdrawal, unspecified
[2024-08-21] MEDS: SODIUM CHLORIDE 1 GM TABLET PO SCH (15:00)
[2024-08-22 04:09] VITALS: TEMP 97.9; O2SAT 97
[2024-08-22 06:39] LABS: BUN Creatinine Ratio 16.4 (10-20); Calcium 8.5 mg/dl (8.6-10.3); Creatinine Clr Calc Pharmacy 165.9 ml/min; Potassium 3.6 mmol/L (3.5-5.1)
[2024-08-22 07:53] VITALS: PULSE 84; RESP 20
[2024-08-22 08:51] VITALS: BP 131/89
--- NOTE | 2024-08-22 10:32 | Discharge Summary ---
Date of Service August 22, 2024 Admission HPI Per Admitting Provider Len is a 54-year-old male with PMH of alcohol withdrawal, alcoholic hepatitis, T2DM, HTN, HLD, and anxiety. He presented on 08/19 for an alcoholic detox request. Patient reports he has been under increased stress over the past 4 days after his broke her ankle. He reports he has been drinking 10 glasses of wine per day. His last drink was last night on the evening of 08/18, when he was drinking vodka. He reports he has been drinking regularly for an extended period of time. His last alcohol withdrawal was in 2019. He is unsure what medications he took at that time that worked for him. He denies prior history of alcohol withdrawal seizures or history of DTs/visual hallucinations. That said, he believes he was seeing things last night, and when asked to describe if they were visual hallucinations, he says that they were more like "movements". Note: Patient did take an edible last night, and does endorse marijuana use at baseline. Patient has experienced lightheadedness, feeling off balance, and vomiting since last night. He reports he did vomited 4 times this morning (bilious vomiting) no blood in his vomit. He denies any aspiration, or feeling like the vomit went down the wrong pipe. Patient did not take his regular morning medicine today, but does report good compliance with taking them on a daily basis; last took yesterday on the morning of 08/18. No recent change in medications. No prior history of seizures. He denies syncope or recent injuries to his head or neck. He is not on supplemental oxygen at baseline or CPAP at night. No sick contacts. No recent change in diet. He denies tobacco use or recreational drug use other than marijuana. Patient is tachycardic at 107 bpm at time of admission; SpO2 96% on RA; vitals otherwise stable. ED course: NSS 1000 mL IV Vitamin B1 200 mg IV Diazepam 10 mg IV Zofran 4 mg IV ROS: Patient endorses mild tremors, dizziness, lightheadedness, unsteady on feet, potential visual changes (may have had visual hallucinations last night while on edibles), chest tightness (which patient attributes to anxiety), nausea, bilious vomiting, and decreased urinary frequency. Patient denies fever, chills, night-sweats, photophobia, neck stiffness/pain, chest palpitations, pleuritic CP, cough, SOB, abdominal pain, hematemsis, diarrhea, or numbness/tingling in the arms or legs. Admission Exam (Per Admitting) Constitutional The patient is awake, alert and oriented 3, well developed and well nourished, normocephalic and atraumatic, lying in bed and in no acute distress. HEENT--PERRL, EOMI, mucous membranes and oropharynx mildly dry Neck--supple. No JVD. No bruits. Thyroid normal, trachea midline, no adenopathy. Heart--normal S1 and S2. No murmurs, rubs or gallops. Lungs--clear bilaterally, no respiratory distress, no accessory muscle use. Abdomen--normal bowel sounds and soft. Extremities--no cyanosis or clubbing. No edema. Dermatologic--normal skin turgor, normal color, no abnormal lymph nodes, no rash. Neurologic--cranial nerves II through XII grossly intact. Rheumatologic--normal range of motion. Psychiatric--normal affect. Discharge Data Consultations 08/19/24 10:09 ED Decision to Admit Stat Hospital Course (1) Alcohol withdrawal: (2) Hyponatremia: (3) Hypomagnesemia: Lilian Harrington is a 54-year-old male with PMH of alcohol withdrawal, alcoholic hepatitis, T2DM, HTN, HLD, and anxiety. He presented on 08/19 for an alcoholic detox request. Patient reports he has been under increased stress over the past 4 days after his broke her ankle. He reports he has been drinking 10 glasses of wine per day. His last drink was last night on the evening of 08/18, when he was drinking vodka. #Alcohol withdrawal Ethyl alcohol level elevated at 137 on arrival AWSS active protocol with IV Ativan PRN Daily thiamine and folate supplementation Now resolved patient adviced on the need to stop alcohol He now wants to go to alcohol rehab #Hyponatremia improving Sodium 118 on arrival; up to 129 Urine osm low suggesting attempts at auto correction, urine sodium, and serum osm ordered, pending Seizure precautions Ativan 2 mg IV q5m PRN on-call for active seizure-like activity #Hypomagnesemia Magnesium 1.5 on arrival replete #Nausea and vomiting Protonix 40 mg IV QAM IV antiemetics as needed; QTc okay #Hypoxia Noted on arrival; 83% on RA confirmed by nursing staff CXR without acute findings Initially, some concern for aspiration event given patient was vomiting earlier, however patient was 96% on RA throughout physical exam on admission Continuous pulse oximetry for now #T2DM Last A1c at 6.1% on 05/08/2024 Hold metformin, semaglutide Will defer Lantus given poor oral intake at this time SSI with target BSG range 110-140mg/dL, CF 45, carb ratio 15 Clear liquid diet for now, advance to T2DM diet as tolerated BSG ACHS Adjust regimen as needed Chronic stable conditions: HTN-amlodipine, lisinopril HLD-simvastatin Full code DVT PPx: Lovenox 40 mg SQ q24h Plan is for alcohol rehab Coding Level of Care Code 10211 INP/OBS DISCH >30 MIN Diagnoses Alcohol withdrawal F10.239 Complication of substance-induced condition: with unspecified complication Hyponatremia E87.1 Hypomagnesemia E83.42 Time Spent (min) 35
[2024-08-22] MEDS: GABAPENTIN 600 MG TAB PO SCH (11:12)
[2024-08-22] MEDS ORDERED: GABAPENTIN 600 MG TAB PO SCH (18:00)
[2024-08-23 14:07] LABS: Marijuana Quant, GCMS Urine 127 ng/mL (<5)
[2024-08-24] MEDS ORDERED: GABAPENTIN 600 MG TAB PO SCH
== END 2024-08-22 11:45 | disposition alcohol treatment (31) | DRG 897 ==
LOC: ED 08:36 → EDINP 10:44 → SUATTDRO 10:44 → 4W 14:20